=== PATIENT | female | born 1960 | race Caucasian/White ===

== ENCOUNTER → 2019-11-29 10:21 | Outpatient (CLI) | payer OTHER, SELFPAY ==
--- NOTE | ~2019-11-29 | MM_ITS ---
EXAMINATION: MM screening tonio BI w queta HISTORY: Screening mammogram TECHNIQUE: Craniocaudal and mediolateral oblique 3-D tomosynthesis images were obtained and synthetic 2-D images were generated. CAD analysis was submitted and interpreted. COMPARISON: 11/07/2018 bilateral diagnostic digital mammogram 04/12/2018 and 08/31/2017 diagnostic right digital mammogram 08/15/2017, 08/12/2016 bilateral digital screening mammogram BREAST PARENCHYMAL COMPOSITION: The breasts are almost entirely fatty. FINDINGS: There is no evidence of suspicious mass, calcification, or architectural distortion to sugg est malignancy in either breast. There has been no suspicious interval change. IMPRESSION: 1. No mammographic evidence of malignancy. 2. Recommend routine screening mammography in one year. BI-RADS Category 1: Negative Reviewed, dictated and finalized at location A. FILER
== END ==
PROVIDERS: Visit Provider Nurse Practitioner Obstetrics & Gynecology
DX: Z12.31 Encounter for screening mammogram for malignant neoplasm of breast (principal)
CPT/HCPCS: 77063; 77067

== ENCOUNTER 2020-10-05 08:04 | Outpatient (CLI) | payer OTHER, SELFPAY ==
[2020-10-06 12:24] LABS: SARS-CoV-2 RNA PCR Negative
== END 2020-10-05 08:05 | disposition home or self-care (01) ==
LOC: CHSLAB 08:07
PROVIDERS: PCP Internal Medicine; Visit Provider Internal Medicine
DX: Z20.828 Contact with and (suspected) exposure to other viral communicable diseases (principal)
CPT/HCPCS: 87635; C9803; U0003

== ENCOUNTER 2021-01-20 16:50 | Inpatient (IN) | payer OTHER, SELFPAY ==
[2021-01-20] VITALS (12 sets, daily range): BP systolic 119–142; BP diastolic 69–76; PULSE 85–228; RESP 17–27; TEMP 37.6–39.2; O2SAT 88–100; BMI 35.2
--- NOTE | ~2021-01-20 | CT_ITS ---
EXAMINATION: CTA chest PE protocol DATE: 01/20/2021 19:15 INDICATION: COVID-19 pneumonia. Fever. Supraventricular tachycardia. TECHNIQUE: Computed tomography angiography (CTA) of the chest was performed with 100 mL Omnipaque-350 intravenous contrast timed to evaluate the pulmonary arteries. Coronal maximum intensity projection 3D-reconstructions were created by the technologist. Automated exposure control and iterative reconst ruction technique were employed. The dose-length product was 825.00 mGy-cm. COMPARISON: Chest single view 01/20/2021 FINDINGS: There are patchy airspace and groundglass opacities in all lobes bilaterally. A calcified l eft lung nodule and calcified left hilar and mediastinal lymph nodes are consistent with old granulom atous disease. No pleural effusion. The heart size is normal. No pericardial effusion. There is no pu lmonary embolus. There is dextroscoliosis and severe spondylosis of thoracic spine. IMPRESSION: 1. No pulmonary embolus. 2. Diffuse lung disease, consistent with pneumonia. Reviewed, dictated and finalized at location A.
--- NOTE | ~2021-01-20 | XR_ITS ---
EXAMINATION: XR chest 2V DATE: 01/24/2021 11:23 INDICATION: Cough and shortness of breath. COVID-19 pneumonia. TECHNIQUE: Frontal and lateral views of the chest were obtained. COMPARISON: Chest single view 01/20/2021, chest CT 01/20/2021 FINDINGS: There are patchy airspace opacities in the mid and lower lung zones. No pleural effusion or pneumothorax. The heart size is normal. IMPRESSION: 1. Patchy airspace opacities in the mid and lower lung zones, worsened from 01/20/2021, consistent with COVID-19 pneumonia. Reviewed, dictated and finalized at location A. IMPRESSION: 1. Patchy airspace opacities in the mid and lower lung zones, worsened from 01/20, consistent with COVID-19 pneumonia.
--- NOTE | ~2021-01-20 | XR_ITS ---
EXAMINATION: XR chest 1V portable DATE: 01/20/2021 17:48 INDICATION: Supraventricular tachycardia. Shortness of breath. TECHNIQUE: A single frontal view of the chest was obtained on 2 radiographs. COMPARISON: Chest 2 views 08/30/2013 FINDINGS: There are mild airspace opacities in the mid and lower lung zones. No pleural effusion or p neumothorax. The heart size is normal. IMPRESSION: 1. Mild airspace opacities in the mid and lower lung zones, consistent with atelectasis versus pneumo ketan. Reviewed, dictated and finalized at location A. IMPRESSION: 1. Mild airspace opacities in the mid and lower lung zones, consistent with ate lectasis versus pneumonia.
--- NOTE | 2021-01-20 17:09 | ECG_ITS ---
Measurements Intervals [place] Rate: 221 P: NE: 0 QRS: -5 QRSD: 196 T: 0 QT: 193 QTc: 370 Interpretive Statements SUPRAVENTRICULAR TACHYCARDIA LEFT VENTRICULAR HYPERTROPHY WITH ST-T CHANGE ST-T WAVE ABNORMALITY IN DIFFUSE LEADS- CONSIDER ISCHEMIA OR RATE RELATED ABNORMAL ECG Electronically Signed On 01-20-2021 17:21:15 CDT by Paco Anderson D.O.
--- NOTE | 2021-01-20 17:18 | PC.NURSE ---
VAGAL MANEUVERS ATTEMPTED WITHOUT SUCCESS.
[2021-01-20] MEDS: SODIUM CHLORIDE 0.9% IV 1,000 ML 999 ML IV CONT (17:20)
[2021-01-20] MEDS: ADENOSINE IV SOLN 6 MG/2 ML VIAL (17:23)
--- NOTE | 2021-01-20 17:23 | PC.NURSE ---
6 MG ADENOSINE ADMINISTERED RAPIDLY FOLLOWED BY A 30ML NS RAPID BOLUS WITH EDP AT BEDSIDE. PT TOLERATED WELL. PT NOW IN SINUS TACH RATE 116. STATES SHE IS FEELING BETTER.
--- NOTE | 2021-01-20 17:25 | ECG_ITS ---
Measurements Intervals [place] Rate: 109 P: 26 CT: 149 QRS: -8 QRSD: 86 T: -9 QT: 304 QTc: 410 Interpretive Statements SINUS TACHYCARDIA LEFT VENTRICULAR HYPERTROPHY WITH ST-T CHANGE CONSIDER INFERIOR INFARCT, AGE INDETERMINATE ABNORMAL ECG Electronically Signed On 01-21-2021 7:14:26 CDT by Paco Anderson D.O.
[2021-01-20] MEDS: ACETAMINOPHEN 500 MG TABLET 1000 MG PO (17:36)
[2021-01-20 18:07] LABS: Basophils Absolute Auto 0.01 K/mm3 (0.00-0.10); Basophils Percent Auto 0.1 % (0.0-1.0); Eosinophils Absolute Auto 0.01 K/mm3 (0.02-0.50); Eosinophils Percent Auto 0.1 % (1.0-6.0); Hematocrit 39.8 % (35.0-49.0); Immature Granulocyte Absolute 0.03 K/mm3 (0.00-0.00); Immature Granulocyte Percent A 0.4 % (0.0-0.0); Lymphocytes Absolute Auto 0.92 K/mm3 (1.10-4.50); Lymphocytes Percent Auto 13.6 % (18.0-42.0); Mean Corpuscular HGB Conc 32.7 g/dL (32.0-36.0); Mean Corpuscular Hemoglobin 30.2 pg (27.0-31.0); Mean Corpuscular Volume 92.6 fL (78.0-102.0); Mean Platelet Volume 9.3 fl (9.2-11.8); Neutrophils Absolute Auto 5.6 K/mm3 (1.7-7.2); Neutrophils Percent Auto 82.8 % (50.0-70.0); Platelet Count Result 197 K/mm3 (150-420); Red Cell Distribution Width 12.2 % (11.6-14.4); White Blood Count 6.8 K/mm3 (4.8-10.8)
[2021-01-20 18:07] LABS: Base Excess ABG -0.7 mmol/L (0-2); Fractional Inspired Oxygen 24 %; HCO3 ABG 22.4 mmol/L (23-29); Oxygen Content ABG 16.8 %vol (16.0-22.0); Oxygen Saturation ABG 96.1 % (95-97); PCO2 ABG 31.9 mmHg (35-45); PO2 ABG 78.1 mmHg (80-90); PO2 FiO2 Ratio Arterial Blood 3.25 %; Total Hemoglobin 12.4 g/dL; pH ABG 7.46 (7.35-7.45)
[2021-01-20 18:11] LABS: Site Drawn LEFT BRACHIAL
[2021-01-20 18:20] LABS: Add Urine Microscopic? YES; Appearance Urine Clear (Clear); Bilirubin Urine Negative (Negative); Blood Urine Negative (Negative); Color Urine Yellow (Yellow); Glucose Urine UA Negative (Negative); Ketones Urine Negative (Negative); Leukocyte Esterase Ur Negative LEU/UL (Negative); Nitrate Urine Negative (Negative); Protein Urine Trace (Negative); Urobilinogen Urine 0.2 mg/dL (0.2-1.0); pH Urine 6.5 (5.0-8.0)
[2021-01-20 18:23] LABS: Troponin I 17.1 ng/L (0.00-60.4)
[2021-01-20 18:26] LABS: Lactic Acid Reflex 1.2 mmol/L (0.4-2.0)
[2021-01-20 18:29] LABS: Alanine Aminotransferase 25 U/L (14-59); Alkaline Phosphatase 72 U/L (46-116); Anion Gap 9 mmol/L (8-16); Aspartate Amino Transferase 24 U/L (15-37); Bilirubin,Total 0.5 mg/dL (0.00-1.00); Blood Urea Nitrogen 10 mg/dL (7-18); CRP 10.1 mg/dL (0.0-0.9); Calcium 7.6 mg/dL (8.5-10.1); Carbon Dioxide 26 mmol/L (21-32); Chloride 101 mmol/L (98-108); Estimated CRCL calculation 51 ml/min; Estimated Glomerular Filt Rate 58; Glucose 138 mg/dL (70-99); Osmolality Calculated 283 mOsm/kg (285-295); Potassium 3.6 mmol/L (3.5-5.1); Sodium 136 mmol/L (136-145); Thyroid Stimulating Hormone 1.29 uIU/mL (0.36-3.74)
[2021-01-20 18:31] LABS: D Dimer 1.09 mg/L (0.19-0.50)
[2021-01-20 18:41] LABS: Partial Thromboplastin Time 31.7 SEC (23.90-30.70); Prothrombin Time 10.7 Seconds (9.50-12.10)
[2021-01-20 18:47] LABS: RBC Urine 0-2 /hpf (0-2); WBC Urine 0-3 /hpf (0-3)
[2021-01-20 18:48] LABS: Squamous Epithelial Cell Urine Rare /hpf (Few)
--- NOTE | 2021-01-20 19:17 | PC.NURSE ---
REPORT TO PAULETTE BARRETT
--- NOTE | 2021-01-20 19:28 | ED.FEVER ---
HPI - Fever General Chief Complaint: Chest Pain Stated Complaint: spiking heart rate,covid + Source: patient Mode of arrival: ambulatory History of Present Illness HPI Narrative: patient presents with some fever of 102 and is having tachycardia with a rate of 238 patient has O2 saturation at home of 88% on room air was diagnosed with COVID on 01/09/2021, with no shortness of breath no diaphoresis no chest pain no nausea vomiting all patient has a history abnormal heart rhythm with no a hyperlipidemia. MD elicited complaint: fever Onset (ago): day(s) Exacerbating factors: nothing Relieving factors: nothing Related Data Home Medications Medication Instructions Recorded Confirmed omega-3 fatty acids-fish oil 360 1 cap PO DAILY 12/29/19 01/20/21 mg-1,200 mg capsule vitamin D3 2,500 unit-folic acid 1 1 tablet PO DAILY 12/29/19 01/20/21 mg tablet atorvastatin 20 mg PO DAILY 01/20/21 01/20/21 diltiazem HCl 240 mg PO DAILY 01/20/21 01/20/21 Allergies Allergy/AdvReac Type Severity Reaction Status Date / Time No Known Drug Allergies Allergy Unknown none Verified 12/31/19 08:52 Review of Systems Review of Systems: All systems reviewed & are unremarkable except as noted in HPI and below PMFSH Past Medical History Medical History Hypertension Surgical History Surgical History History of appendectomy Family History Family History Mother Hypertension Family history of elevated blood lipids Family history of chronic obstructive pulmonary disease Father Family history of cardiovascular disease Social History Social History Smoking status: Never smoker Exam Const: General: no acute distress Orientation/consciousness: patient oriented x3 HENMT: Head: normal to inspection and contusion Eyes: Conjunctivae: conjunctivae normal Pupils: Equal, round and reactive pupils present Neck: Neck: normal visual inspection Chest: Chest palpation & inspection: normal inspection of the chest Resp: Effort & Inspection: normal respiratory effort Cardio: Rate: regular rate and tachycardic Peripheral pulses: Peripheral pulses 2+ throughout GI: GI Palp: Yes Soft to palpation Percussion: Yes normal to percussion : General: Yes no CVA tenderness Back/Spine/Pelvis: Back: no CVA tenderness Skin: General skin exam: normal color Rashes: no rashes Extrem: General: normal to inspection and no pedal edema Psych: Mental Status: mental status grossly normal Course 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 Supervision Patient initially with heart rate of 238 on the monitor, tried cold ice pack to the face along with a carotid massage after auscultating the carotid arteries in no bruits auscultated, the patient was given 6 of adenosine and which a sharebroker tachycardia and current heart rate was 104, repeat EKG shows a normal sinus rhythm with some heart rate of 104, the patient had no unstable vital signs the patient had a fever and was started on IV fluids, patient had an elevated D-dimer and CTA was performed which is negative for pulmonary embolism, x-ray did show that she has a mid lung opacities consistent with pneumonia and was given ceftriaxone azithromycin. Vital Signs Vital signs: Vital Signs Temperature 39.2 C H 01/20/21 17:00 Pulse Rate 228 H 01/20/21 17:00 Respiratory Rate 22 H 01/20/21 17:00 Blood Pressure 140/70 01/20/21 17:00 Pulse Oximetry 88 L 01/20/21 17:00 Temperature 39.1 C H 01/20/21 18:21 Pulse Rate 104 H 01/20/21 18:46 Respiratory Rate 25 H 01/20/21 18:46 Blood Pressure 125/72 01/20/21 18:45 Pulse Oximetry 99 01/20/21 18:46 MDM - Fever Lab Data Result diagrams: 01/20/21 17:53 01/20/21 17:53 Labs: Lab Results 01/20/21 01/20/21
[2021-01-20 20:25] LABS: SARS-CoV-2 Ag Positive (Negative)
[2021-01-20 22:24] LABS: Device NASAL CANNULA
--- NOTE | 2021-01-20 22:35 | ADMGEN ---
This patient, Christina Damon, was admitted to 2nd Floor Room 211-1. Patient/family oriented to hospital policies and general routines including ID bracelet, bed and alarms, visiting hours, pain management, procedures, bathroom and other care routines, personal items, smoking policy, room service/diet, and visiting hours. Discussed Telemetry and discussed isolation and need to stay in room. Informed called. Information on how to activate the Rapid Response Team has been discussed. Patient/Family are encouraged to report perceived risks to care and to ask questions if they do not understand what they are told or what they should do.
[2021-01-20] MEDS: SODIUM CHLORIDE 0.9% IV 1,000 ML 100 ML IV CONT (23:13)
[2021-01-20] MEDS: REMDESIVIR 200 MG/NS 250 ML 200 MG/250 ML BAG 250 MG IVPB (23:23)
[2021-01-21] VITALS (10 sets, daily range): BP systolic 126–142; BP diastolic 60–75; PULSE 54–121; RESP 18–20; TEMP 37–38; O2SAT 91–96
--- NOTE | 2021-01-21 01:26 | PC.NURSE ---
pt sleeping, respirations even and regular, no evidence of distress noted at this time, belongings and call light within reach, tele monitor with alarms on, iv fluids infusing per order and alarms on
[2021-01-21] MEDS: ACETAMINOPHEN 325 MG TABLET 650 MG PO (04:15)
[2021-01-21 05:32] LABS: Basophils Absolute Auto 0.01 K/mm3 (0.00-0.10); Basophils Percent Auto 0.2 % (0.0-1.0); Eosinophils Absolute Auto 0.04 K/mm3 (0.02-0.50); Eosinophils Percent Auto 0.6 % (1.0-6.0); Hematocrit 36.6 % (35.0-49.0); Hemoglobin 11.8 g/dL (12.0-15.0); Immature Granulocyte Absolute 0.03 K/mm3 (0.00-0.00); Immature Granulocyte Percent A 0.5 % (0.0-0.0); Lymphocytes Absolute Auto 1.25 K/mm3 (1.10-4.50); Lymphocytes Percent Auto 18.9 % (18.0-42.0); Mean Corpuscular HGB Conc 32.2 g/dL (32.0-36.0); Mean Corpuscular Hemoglobin 29.5 pg (27.0-31.0); Mean Corpuscular Volume 91.5 fL (78.0-102.0); Mean Platelet Volume 9.5 fl (9.2-11.8); Monocytes Absolute Auto 0.16 K/mm3 (0.10-0.90); Monocytes Percent Auto 2.4 % (2.0-11.0); Neutrophils Absolute Auto 5.1 K/mm3 (1.7-7.2); Neutrophils Percent Auto 77.4 % (50.0-70.0); Platelet Count Result 197 K/mm3 (150-420); Red Cell Distribution Width 12.2 % (11.6-14.4); White Blood Count 6.6 K/mm3 (4.8-10.8)
[2021-01-21 06:08] LABS: Alanine Aminotransferase 24 U/L (14-59); Anion Gap 8 mmol/L (8-16); Calcium 7.7 mg/dL (8.5-10.1); Carbon Dioxide 26 mmol/L (21-32); Chloride 104 mmol/L (98-108); Estimated CRCL calculation 58 ml/min; Estimated Glomerular Filt Rate > 60; Potassium 3.3 mmol/L (3.5-5.1); Sodium 138 mmol/L (136-145)
[2021-01-21 06:13] LABS: Lactic Acid Reflex 0.9 mmol/L (0.4-2.0)
[2021-01-21 06:22] LABS: Albumin Level 2.4 g/dL (3.4-5.0); Alkaline Phosphatase 59 U/L (46-116); Aspartate Amino Transferase 23 U/L (15-37); Bilirubin,Total 0.3 mg/dL (0.00-1.00); Blood Urea Nitrogen 7 mg/dL (7-18); Glucose 113 mg/dL (70-99); Magnesium 1.7 mg/dL (1.8-2.4); Osmolality Calculated 285 mOsm/kg (285-295); Total Protein 6.5 g/dL (6.4-8.2)
[2021-01-21 06:36] LABS: Creatine Kinase 106 U/L (26-192)
[2021-01-21] MEDS: ATORVASTATIN 10 MG TABLET 20 MG PO (10:02)
[2021-01-21] MEDS: DEXAMETHASONE SOD PHOS INJ 4 MG/ML VIAL 6 MG IV PUSH (10:06)
[2021-01-21] MEDS: SODIUM CHLORIDE 0.9% IV 1,000 ML 100 ML IV CONT (12:10)
--- NOTE | 2021-01-21 16:55 | PM.IMHP ---
H&P: HPI History of Present Illness Date/Time: 01/21/21 16:55 Christina Damon, a 60 year old female, presents to the hospital staff with HR in the 230s along with a fever. Per ER note Pt tested positive for COVID on 01/09/2021. Upon seeing the Pt in her room she did not complain of SOB but did states she feels a little tightness in her chest that feels the same as when she has anxiety. Pt states that she and her PCP discussed her anxiety but the Pt did not want to take any medication for this however she did agree to take some while hospitalized. Pts SVT was resolved in the ER with Adenosine. Pt had holter monitor in the past without SVT episodes. When EMS arived on the scene Pt had an SpO2 of 88%. Pt denies any SOB at this time, no abdominal issues, no bowel or bladder issues, no musculoskeletal issues at this time. Chief Complaint: Fever and Palpitations Review of Systems Constitutional: Constitutional: Reports no additional constitutional complaints, Denies chills, Denies fever(s) and Denies poor appetite Eyes: Eyes: Reports itchy eyes (and dry) ENT: Reports system reviewed and no additional complaints, except as documented, Denies vertigo, Denies dizziness, Denies dry mouth and Denies headache(s) Cardiovascular: Cardiovascular: Reports no additional cardiovascular complaints Comments: pressure in chest which Pt states happens when she has anxiety Respiratory: Respiratory: Reports no additional respiratory complaints, Reports cough (occasional) and Denies dyspnea Gastrointestinal: Gastrointestinal: Reports no additional gastrointestinal complaints Genitourinary: Genitourinary: Reports no additional female genitourinary complaints Musculoskeletal: Musculoskeletal: Reports no additional musculoskeletal complaints Neurologic: Reports system reviewed and no additional complaints, except as documented, Reports Normal hearing present, Denies vertigo, Denies dizziness and Denies syncope Psychiatric: Psychiatric: Reports anxiety (has had this in past but denied medication for this) [facility] Past Medical History Medical History (Updated 01/21/21 @ 17:18 by José Antonio Burden APN-Yenni) Body mass index [BMI] 36.0-36.9, adult (01/21/18) Dyslipidemia Hypertension Obesity (BMI 35.0-39.9 without comorbidity) Surgical History Surgical History History of appendectomy Family History Family History Mother Hypertension Family history of elevated blood lipids Family history of chronic obstructive pulmonary disease Father Family history of cardiovascular disease Social History Social History Smoking status: Never smoker Alcohol intake: never Substance use: never Substance use type: does not use Gender identity (if verbalized by the patient): Female Spiritual care concerns: No Meds Home Medications and Allergies Home Medications Medication Instructions Recorded Confirmed Type omega-3 fatty acids-fish oil 360 1 cap PO DAILY 12/29/19 01/20/21 History mg-1,200 mg capsule vitamin D3 2,500 unit-folic acid 1 1 tablet PO DAILY 12/29/19 01/20/21 History mg tablet atorvastatin 20 mg PO DAILY 01/20/21 01/20/21 History diltiazem HCl 240 mg PO DAILY 01/20/21 01/20/21 History Allergies Allergy/AdvReac Type Severity Reaction Status Date / Time No Known Drug Allergies Allergy Unknown none Verified 12/31/19 08:52 Vital Signs Vital Signs - 24 hr 01/20/21 17:00 01/20/21 17:35 01/20/21 18:00 Temperature 102.5 F H Pulse Rate 228 H 112 H Respiratory Rate 22 H 20 Blood Pressure 140/70 142/75 H 133/76 Pulse Oximetry 88 L 94 94 01/20/21 18:21 01/20/21 18:31 01/20/21 18:32 Temperature 102.3 F H Pulse Rate 106 H 108 H Respiratory Rate 22 H 27 H Blood Pressure 125/69 Pulse Oximetry 99 100 01/20/21 18:45 01/20/21 18:46 01/20/21 19:34
[2021-01-21] MEDS: LORazepam INJ (*CRX) 2 MG/ML VIAL 0.5 MG IV PUSH (17:03)
[2021-01-21] MEDS: POTASSIUM CHLORIDE 20 MEQ TABLET 40 MEQ PO (17:56)
[2021-01-21] MEDS: MAGNESIUM SULF 4 GM/WATER100ML 4 GM/100 ML BAG IVPB (17:56)
[2021-01-21] MEDS: REMDESIVIR 100 MG/NS 250 ML 100 MG/250 ML BAG 250 MG IVPB (22:38)
[2021-01-21] MEDS: ENOXAPARIN 40 MG/0.4 ML SYRINGE SUB-Q (22:39)
[2021-01-22] VITALS (8 sets, daily range): BP systolic 115–176; BP diastolic 62–85; PULSE 71–97; RESP 18–20; TEMP 35.7–36.9; O2SAT 90–95
[2021-01-22 05:54] LABS: Alanine Aminotransferase 31 U/L (14-59); Estimated CRCL calculation 62 ml/min; Estimated Glomerular Filt Rate > 60
[2021-01-22] MEDS: ATORVASTATIN 10 MG TABLET 20 MG PO (09:19)
[2021-01-22] MEDS: ENOXAPARIN 40 MG/0.4 ML SYRINGE SUB-Q ×2 (09:19→21:28)
[2021-01-22] MEDS: DEXAMETHASONE SOD PHOS INJ 4 MG/ML VIAL 6 MG IV PUSH (09:24)
--- NOTE | 2021-01-22 10:43 | PM.IMPN ---
Progress Note: A&P Assessment and Plan (1) COVID-19: Code(s): U07.1 - COVID-19 Status: Acute Assessment and Plan: 01/21/2021 Pt is receiving Decadron, Remdesivir, Azithromycin, Rocephin, and Lovenox for elevated D-Dimer with negative PE results. 01/22/2021 Continue with above, Pt states breathing about the same as yesterday, RA with SpO2 > 90 % (2) Paroxysmal supraventricular tachycardia: Code(s): I47.1 - Supraventricular tachycardia Status: Acute Assessment and Plan: 01/21/2021 Rate at this time is in the 80s and regular, cardiac monitoring, monitoring VS, taking her Diltiazem 01/22/2021 Cardiac Monitoring showing SR in the 80s, VSS stable (3) Pneumonia: Qualifiers: Laterality: unspecified laterality Lung location: unspecified part of lung Pneumonia type: due to unspecified organism Qualified Code(s): J18.9 - Pneumonia, unspecified organism Code(s): J18.9 - Pneumonia, unspecified organism Status: Acute Assessment and Plan: 01/21/2021 Pt has Rocephin and Azithromycin 01/22/2021 No changes at this time, slight posterior crackles (4) Hypertension: Code(s): I10 - Essential (primary) hypertension Status: Acute Assessment and Plan: 01/21/2021 monitoring VS, continue Diltiazem 01/22/2021 VSS continue with above (5) Dyslipidemia: Code(s): E78.5 - Hyperlipidemia, unspecified Status: Acute Assessment and Plan: 01/21/2021 continue Atorvastatin 01/22/2021 ... Subjective Date/time seen: 01/22/21 10:43 Pt laying in bed on the phone with her sister. Pt states her breathing is about the same as yesterday. She admits to having an occasional cough that is non-productive. She denies CP, Abdominal pains or changes in bowel habits, no musculoskeletal issues, no numbness or tingling, no LEÓN, changes in vision, or balance. Pt did say that the Ativan yesterday did help with her anxiety. Review of Systems Review of Systems: All systems reviewed & are unremarkable except as noted in HPI and below Exam Const: General: cooperative, comfortable and no acute distress Nutritional Appearance: overweight HENMT: Head: normal to inspection, normocephalic and atraumatic Ears: hearing grossly normal bilaterally Neck: Neck: normal visual inspection, no lymphadenopathy and no JVD Resp: Effort & Inspection: normal respiratory effort and Actively coughing (with deep breathing) Auscultation: clear to auscultation bilaterally and crackles (slight posterior bases) Cardio: Palpation: normal PMI Rhythm: regular rhythm Heart sounds: S1 normal heart sound present, S2 normal heart sound present, no click, no gallops, no murmurs and no rubs GI: GI Palp: Yes Soft to palpation and No Tenderness to palpation present (GI) Auscultation: normal bowel sounds Skin: General skin exam: normal color and turgor normal Lesions: no lesions Rashes: no rashes Trauma: no lacerations or abrasions Neuro: General: oriented to person, oriented to place, oriented to time, moves all extremities and no focal motor deficits Cranial nerves: Yes CN's II-XII intact bilaterally (grossly intact) Cognition (Neuro): normal cognition Speech: normal speech Extrem: General: normal to inspection, full ROM and edema (trace edema) bilateral Psych: Appearance: grossly normal Mental Status: mental status grossly normal Speech and movement: Normal speech and movement present Affect: normal affect Attitude: cooperative Thought process: Normal thought process present Thought content: Yes Normal thought content present Objective Data Vital Signs Vital Signs: Vital Signs - 24 hr 01/21/21 12:00 01/21/21 16:51 01/21/21 16:53 Temperature 99.8 F H 99.4 F Pulse Rate 54 L 92 121 H Respiratory Rate 18 18 Blood Pressure 137/71 142/69 H Pulse Oximetry 92 96 01/21/21 20:00 01/22/21 00:00 01/22/21 04:00 Temperature 98.6 F 97.2 F L 97.6 F Pulse Rate 80 86 76 Respiratory Rate 20 20 18 Blood Pressur
[2021-01-22] MEDS: REMDESIVIR 100 MG/NS 250 ML 100 MG/250 ML BAG 250 MG IVPB (21:40)
--- NOTE | 2021-01-23 01:45 | PC.NURSE ---
Telemetry SR, no needs voiced, resting quietly, oxygen on at 2 L NC
--- NOTE | 2021-01-23 03:30 | PC.NURSE ---
Resting quietly, oxygen on at 2 L NC, no distress noted, telemetry SR, remains on isolation at this time
[2021-01-23 04:00] VITALS: PULSE 70; RESP 18; TEMP 37.1; O2SAT 95
--- NOTE | 2021-01-23 05:46 | PC.NURSE ---
Fresh water to bedside, has been resting well, oxygen remains at 2 L NC at this time, no distress noted
--- NOTE | 2021-01-23 06:05 | PC.NURSE ---
Resting quietly, call light in reach, personal items in reach of patient denies needs,
[2021-01-23 06:22] LABS: Hemoglobin 12.3 g/dL (12.0-15.0); Mean Corpuscular HGB Conc 32.4 g/dL (32.0-36.0); Mean Corpuscular Hemoglobin 29.6 pg (27.0-31.0); Mean Corpuscular Volume 91.6 fL (78.0-102.0); Mean Platelet Volume 9.3 fl (9.2-11.8); Platelet Count Result 339 K/mm3 (150-420); Red Blood Count 4.15 M/mm3 (4.20-5.40); Red Cell Distribution Width 12.2 % (11.6-14.4); White Blood Count 11.4 K/mm3 (4.8-10.8)
[2021-01-23 06:37] LABS: Anion Gap 7 mmol/L (8-16); Blood Urea Nitrogen 15 mg/dL (7-18); Calcium 8.2 mg/dL (8.5-10.1); Carbon Dioxide 26 mmol/L (21-32); Chloride 108 mmol/L (98-108); Estimated CRCL calculation 66 ml/min; Estimated Glomerular Filt Rate > 60; Glucose 141 mg/dL (70-99); Osmolality Calculated 294 mOsm/kg (285-295); Potassium 3.8 mmol/L (3.5-5.1); Sodium 141 mmol/L (136-145)
[2021-01-23 06:42] LABS: Alanine Aminotransferase 27 U/L (14-59)
[2021-01-23 08:00] VITALS: BP 154/88; PULSE 73; PULSE 93; RESP 18; TEMP 36.3; O2SAT 2
[2021-01-23 09:00] VITALS: O2SAT 88
[2021-01-23] MEDS: ENOXAPARIN 40 MG/0.4 ML SYRINGE SUB-Q ×2 (10:06→21:01)
[2021-01-23] MEDS: ATORVASTATIN 10 MG TABLET 20 MG PO (10:06)
[2021-01-23] MEDS: DEXAMETHASONE SOD PHOS INJ 4 MG/ML VIAL 6 MG IV PUSH (10:06)
[2021-01-23 12:00] VITALS: BP 176/85; PULSE 70; PULSE 95; RESP 18; TEMP 36.1; O2SAT 92
--- NOTE | 2021-01-23 15:39 | PM.IMPN ---
Progress Note: A&P Assessment and Plan (1) COVID-19: Code(s): U07.1 - COVID-19 <José Antonio BurdenKAYLYN-C - Last Filed: 01/23/21 15:56> Status: Acute <José Antonio BurdenKAYLYN-C - Last Filed: 01/23/21 15:56> Assessment and Plan: 01/21/2021 Pt is receiving Decadron, Remdesivir, Azithromycin, Rocephin, and Lovenox for elevated D-Dimer with negative PE results. 01/22/2021 Continue with above, Pt states breathing about the same as yesterday, RA with SpO2 > 90 % 01/23/2021 Currently 1L NC with SpO2 93% or better at rest, continue to attempt to wean O2, will consider 6 minute walk test <José Antonio HessKAYLYN asencio-C - Last Filed: 01/23/21 15:56> (2) Paroxysmal supraventricular tachycardia: Code(s): I47.1 - Supraventricular tachycardia <José Antonio HessKAYLYN asencio-C - Last Filed: 01/23/21 15:56> Status: Acute <José Antonio BurdenKAYLYN-C - Last Filed: 01/23/21 15:56> Assessment and Plan: 01/21/2021 Rate at this time is in the 80s and regular, cardiac monitoring, monitoring VS, taking her Diltiazem 01/22/2021 Cardiac Monitoring showing SR in the 80s, VSS stable 01/23/2021 Have not had episodes since resolution in the ER with Adenosine, continue to monitor <José Antonio HessKAYLYN asencio-C - Last Filed: 01/23/21 15:56> (3) Pneumonia: Qualifiers: Laterality: unspecified laterality Lung location: unspecified part of lung Pneumonia type: due to unspecified organism Qualified Code(s): J18.9 - Pneumonia, unspecified organism <José Antonio HessKAYLYN asencio-C - Last Filed: 01/23/21 15:56> Code(s): J18.9 - Pneumonia, unspecified organism <José Antonio Calles KAYLYN Burden-C - Last Filed: 01/23/21 15:56> Status: Acute <José Antonio HessKAYLYN asencio-C - Last Filed: 01/23/21 15:56> Assessment and Plan: 01/21/2021 Pt has Rocephin and Azithromycin 01/22/2021 No changes at this time, slight posterior crackles 01/23/2021 Continue as above <José Antonio NguyenKENNETH MoralesC - Last Filed: 01/23/21 15:56> (4) Hypertension: Code(s): I10 - Essential (primary) hypertension <José Antonio KENNETH ReyesC - Last Filed: 01/23/21 15:56> Status: Acute <José Antonio NguyenKENNETH MoralesC - Last Filed: 01/23/21 15:56> Assessment and Plan: 01/21/2021 monitoring VS, continue Diltiazem 01/22/2021 VSS continue with above 01/23/2021 BP elevated over last 24 hours, will monitor tomorrow and make adjustments as needed. <YUDELKA Andrew - Last Filed: 01/23/21 15:56> (5) Dyslipidemia: Code(s): E78.5 - Hyperlipidemia, unspecified <KENNETH AndrewC - Last Filed: 01/23/21 15:56> Status: Acute <José Antonio WendyYUDELKA Morales - Last Filed: 01/23/21 15:56> Assessment and Plan: 01/21/2021 continue Atorvastatin 01/22/2021 ... <José Antonio NguyenYUDELKA Morales - Last Filed: 01/23/21 15:56> Subjective Date/time seen: 01/23/21 15:39 Pt states her breathing is a little better today. She states she still has a cough with deep breathing. Pt understands that her O2 has been decreased as her Oxygen demand has improved. Discussed with Pt adding Albuterol and she would like to try this for her bronchospasms. Pt says that when her Oxygen is off she does feel a little SOB but this is better then when she first arrived at the hospital. <YUDELKA Andrew - Last Filed: 01/23/21 15:56> Review of Systems Review of Systems: All systems reviewed & are unremarkable except as noted in HPI and below <YUDELKA Andrew - Last Filed: 01/23/21 15:56> Exam Const: General: cooperative, comfortable, no acute distress and anxious (Improved) <YUDELKA Andrew - Last Filed: 01/23/21 15:56> Nutritional Appearance: overweight <YUDELKA Andrew - Last Filed: 01/23/21 15:56> Orientation/consciousness: oriented to person, oriented to place and oriented to time <YUDELKA Andrew - Last Filed: 01/23/21 15:56> HENMT: Head: normal to inspection, normocephalic and atraumatic <YUDELKA Andrew Last
[2021-01-23 16:00] VITALS: BP 156/80; PULSE 78; PULSE 84; RESP 18; TEMP 36.7; O2SAT 94
[2021-01-23 20:00] VITALS: BP 151/81; PULSE 86; RESP 20; TEMP 36.4; O2SAT 95
[2021-01-23] MEDS: REMDESIVIR 100 MG/NS 250 ML 100 MG/250 ML BAG 250 MG IVPB (21:12)
[2021-01-24] VITALS (11 sets, daily range): BP systolic 156; BP diastolic 89–102; PULSE 58–92; RESP 18–20; TEMP 35.9–37.7; O2SAT 87–96
[2021-01-24 05:38] LABS: Alanine Aminotransferase 30 U/L (14-59); Estimated CRCL calculation 60 ml/min; Estimated Glomerular Filt Rate > 60
[2021-01-24] MEDS: DEXAMETHASONE SOD PHOS INJ 4 MG/ML VIAL 6 MG IV PUSH (09:04)
[2021-01-24] MEDS: ATORVASTATIN 10 MG TABLET 20 MG PO (09:05)
[2021-01-24] MEDS: ENOXAPARIN 40 MG/0.4 ML SYRINGE SUB-Q (09:05)
[2021-01-24] MEDS: lisinopriL 5 MG TABLET PO (09:59)
--- NOTE | 2021-01-24 10:21 | HOMEO2EVAL ---
Home Oxygen Evaluation RC: Home Oxygen (O2) Evaluation Start: 01/24/21 08:45 Freq: ONCE Status: Active Protocol: RPE Activity Type Activity Date Activity User E-Sign Co-Sign Detail Recorded Client Recorded Date Recorded By Document 01/24/21 10:00 DAYANNA [id number] 01/24/21 10:20 SJB Document 01/24/21 10:01 SJB [id number] 01/24/21 10:20 SJB Document 01/24/21 10:04 Rogelio [id number] 01/24/21 10:20 SJB 01/24/21 01/24/21 01/24/21 10:00 10:01 10:04 Home O2 Evaluation Test Phase Resting Exercise Exercise Oxygen Delivery Room Air Room Air Nasal Cannula Oxygen Flow Rate (L/min) 1 Pulse Oximetry (90-100 %) 93 87 L 91 Pulse Rate (60-100 beats/min) 84 92 89 Activity Tolerance Good Good Rating of Perceived Dyspnea (PD) +1 Mild, +1 Mild, Noticeable to Noticeable to the Participant the Participant but Not to an but Not to an Observer Observer Rate of Perceived Exertion (PE) 12 12 Ambulation Distance (feet) 100 100 Home Oxygen Evaluation Comments Patients sp02 Pt finished the dropped to 87% rest of the on R/A after walk on 1 lpm 100 ft. Pt with her Sp02 will be started staying between on 1 lpm. 90-92%. Treatment Charges O2 Evaluation - Inpatient
--- NOTE | 2021-01-24 13:43 | PM.DS ---
DS: Admitting Diagnosis Admitting Diagnosis Admitting Diagnosis: COVID, SVT DS: Discharge Diagnosis Discharge Diagnosis (1) COVID-19: Code(s): U07.1 - COVID-19 Status: Acute Assessment and Plan: 01/21/2021 Pt is receiving Decadron, Remdesivir, Azithromycin, Rocephin, and Lovenox for elevated D-Dimer with negative PE results. 01/22/2021 Continue with above, Pt states breathing about the same as yesterday, RA with SpO2 > 90 % 01/23/2021 Currently 1L NC with SpO2 93% or better at rest, continue to attempt to wean O2, will consider 6 minute walk test 01/24/2021 Pt is doing well, her lungs are clear, she does not complain of cough at this time, she was given a 6 minute walk test and will require short term use of home oxygen, will send script for Decadron to finish the course, I have been informed that oxygen will be available for the Pt today by DC home. 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 (3) Pneumonia: Qualifiers: Laterality: unspecified laterality Lung location: unspecified part of lung Pneumonia type: due to unspecified organism Qualified Code(s): J18.9 - Pneumonia, unspecified organism Code(s): J18.9 - Pneumonia, unspecified organism Status: Acute Assessment and Plan: 01/21/2021 Pt has Rocephin and Azithromycin 01/22/2021 No changes at this time, slight posterior crackles 01/23/2021 Continue as above 01/24/2021 Pt has been in the hospital to finish her course of Azithromycin and Rocephin, Lungs clear without productive cough (4) Hypertension: Code(s): I10 - Essential (primary) hypertension Status: Acute Assessment and Plan: 01/21/2021 monitoring VS, continue Diltiazem 01/22/2021 VSS continue with above 01/23/2021 BP elevated over last 24 hours, will monitor tomorrow and make adjustments as needed. 01/24/2021 Added Lisinopril to the Pts regimen for elevated BP, Pt will need to f/u with PCP/Associate Spa Director (5) Dyslipidemia: Code(s): E78.5 - Hyperlipidemia, unspecified Status: Acute Assessment and Plan: 01/21/2021 continue Atorvastatin 01/22/2021 ... DS: Summary Hospital Course Hospital Course: Pt's breathing improving, no SVT on the sports photographer, minimal O2 requirement short term at home O2 use. Time Spent with Patient Time attestation: Total time spent providing and/or coordinating discharge services: < 30 minutes Exam Const: General: cooperative, comfortable, no acute distress and anxious (Pt admits to being anxious at times. ) Nutritional Appearance: overweight HENMT: Head: normal to inspection, normocephalic and atraumatic Ears: hearing grossly normal bilaterally Neck: Neck: normal visual inspection, no lymphadenopathy and no JVD Resp: Effort & Inspection: normal respiratory effort and no cough Auscultation: clear to auscultation bilaterally Cardio: Jugular venous distension: no JVD Rate: regular rate Heart sounds: S1 normal heart sound present and S2 normal heart sound present GI: GI Palp: Yes Soft to palpation and No Tenderness to palpation present (GI) Auscultation: normal bowel sounds Skin: General skin exam: normal color Lesions: no lesions Rashes: no rashes Trauma: no lacerations or abrasions Neuro: General: oriented to person, oriented to place and oriented to time Cranial nerves: Yes CN's II-XII intact bilaterally (grossly intact) Cognition (Neuro): normal cognition Speech: normal speech Gait exam (Neuro): Normal gait present Extrem: General: normal to inspection, ful
--- NOTE | 2021-01-24 15:45 | PC.NURSE ---
Patient being discharged home. IV site removed, tip intact. Dressing applied to site. Patient dressed in clothing from home with no assist. All discharge instructions and education reviewed with patient. All belongings gathered together and sent home with patient. Patient accompanied to front door via wheel chair. Left via private vehicle with . denies any questions at discharge.
--- NOTE | 2021-01-26 13:33 | PCDIET ---
Pt states she received and understood her discharge instructions. Pt also states I thought I got excellent care there, everyone was very good to me .
== END 2021-01-24 15:45 | disposition home or self-care (01) | DRG 177 ==
LOC: CHSED 19:57 → CHS2ND 20:03
PROVIDERS: Nurse Practitioner Family; Admitting Provider Emergency Medicine; Emergency Provider Emergency Medicine; PCP Internal Medicine; Visit Provider Emergency Medicine
DX: U07.1 COVID-19 (principal); J12.82 Pneumonia due to coronavirus disease 2019; I47.1 Supraventricular tachycardia; I10 Essential (primary) hypertension; E78.5 Hyperlipidemia, unspecified; E66.9 Obesity, unspecified; Z90.49 Acquired absence of other specified parts of digestive tract; Z68.35 Body mass index [BMI] 35.0-35.9, adult
CPT/HCPCS: 36415; 36600; 71045; 71046; 71275; 80048; 80053; 81001; 82550; 82565; 82805; 83605; 83735; 84443; 84460; 84484; 85025; 85027; 85380; 85610; 85730; 86140; 87040; 87426; 93005; 94618; 96361; 96365; 96367; 96375; 99285; A9270; C9803; J0153; J0456; J0696; J1100; J1650; J2060; J3475; J7030; Q9967

== ENCOUNTER 2021-02-21 14:54 | Outpatient (CLI) | payer OTHER, SELFPAY ==
--- NOTE | ~2021-02-21 | US_ITS ---
EXAMINATION: US venous doppler [facility] DATE: 02/21/2021 15:52 INDICATION: Left lower limb swelling TECHNIQUE: Grayscale ultrasound images without and with compression and Doppler ultrasound images of the left lower extremity veins were obtained. COMPARISON: None. FINDINGS: The visualized portions of left common femoral vein, profunda (deep) femoral vein, femoral vein, popl iteal vein, peroneal veins, posterior tibial veins, gastrocnemius vein and greater saphenous vein out flow are patent. IMPRESSION: 1. No deep venous thrombosis in the left lower limb. Reviewed, dictated and finalized at location A.
== END 2021-02-21 14:55 | disposition home or self-care (01) ==
LOC: CHSIMG 14:56
PROVIDERS: PCP Internal Medicine; Visit Provider Internal Medicine Cardiovascular Disease
DX: R60.0 Localized edema (principal)
CPT/HCPCS: 93971

== ENCOUNTER 2023-03-14 16:21 | Emergency (ER) | payer OTHER, SELFPAY ==
[2023-03-14] VITALS (41 sets, daily range): BP systolic 124–175; BP diastolic 65–92; PULSE 78–205; RESP 10–25; TEMP 36.7–37.3; O2SAT 93–97
--- NOTE | 2023-03-14 16:25 | ECG_ITS ---
Measurements Intervals [place] Rate: 200 P: [place]: 0 QRS: 1 QRSD: 87 T: 224 QT: 221 QTc: 404 Interpretive Statements SUPRAVENTRICULAR TACHYCARDIA LEFT VENTRICULAR HYPERTROPHY AND ST-T CHANGE ST-T WAVE ABNORMALITY IN DIFFUSE LEADS- CONSIDER ISCHEMIA OR RATE RELATED ABNORMAL ECG COMPARED TO ECG 01/20/2021 17:34:29 SUPRAVENTRICULAR TACHYCARDIA NOW PRESENT ST-T WAVE ABNORMALITY NOW PRESENT Electronically Signed On 03-14-2023 18:59:20 CDT by Paco Anderson D.O.
--- NOTE | 2023-03-14 16:27 | ED.ARRPALP ---
HPI - Arrhythmia/Palpitations General Chief Complaint: Arrhythmia/Palpitations Stated Complaint: rapid heart rate Time Seen by Provider: 03/14/23 16:26 Source: patient Mode of arrival: ambulatory History of Present Illness HPI narrative: 62-year-old with a history of obesity, hypertension, dyslipidemia, SVT on diltiazem and losartan presents to the ER with -- palpitation. this is similar to her prior episodes of SVT. this started an hour and a half ago and she tried vagal maneuvers including throwing some cold water on her face and bearing down. None of these maneuvers were able to terminate her SVT. Patient denied any chest pain or shortness of breath. No lightheadedness MD complaint: rapid heart beat Onset (ago): minute(s) ( started 90 minutes ago) Duration: constant Severity: moderate Context: occurred during rest Arrhythmia history: SVT Associated symptoms: denies other symptoms Treatments prior to arrival: vagal maneuvers Related Data Home Medications Medication Instructions Recorded Confirmed vitamin D3 2,500 unit-folic acid 1 1 tablet PO DAILY 12/29/19 03/14/23 mg tablet (Noxifol-D3) cugnedzx-ieh-hhfov ac 400 tablet PO 02/21/21 03/12/23 mcg-calcium carb 500 mg-vit K1 20 mcg tablet (Women's 50 Plus Multivitamin) atorvastatin 20 mg tablet 20 mg PO DAILY 03/12/23 03/14/23 Allergies Allergy/AdvReac Type Severity Reaction Status Date / Time No Known Drug Allergies Allergy Unknown none Verified 03/14/23 16:37 Review of Systems Review of Systems: All systems reviewed & are unremarkable except as noted in HPI and below Constitutional: Constitutional: Reports as per HPI and Reports no additional constitutional complaints Eyes: Eyes: Reports as per HPI and Reports no additional eye complaints ENT: Reports system reviewed and no additional complaints, except as documented and Reports as per HPI Cardiovascular: Cardiovascular: Reports no additional cardiovascular complaints and Reports rapid heart rate Respiratory: Respiratory: Reports as per HPI and Reports no additional respiratory complaints Gastrointestinal: Gastrointestinal: Reports as per HPI and Reports no additional gastrointestinal complaints Musculoskeletal: Musculoskeletal: Reports no additional musculoskeletal complaints Integumentary/Breasts: Skin/Breast: Reports system reviewed and no additional complaints, except as docu and Reports as per HPI Neurologic: Reports system reviewed and no additional complaints, except as documented and Reports as per HPI Psychiatric: Psychiatric: Reports no additional psychiatric complaints and Reports as per HPI Endocrine: Endocrine: Reports no additional endocrine complaints and Reports as per HPI Hematologic/Lymphatic: Hematologic/Lymphatic: Reports no additional hematologic/lymphatic complaints and Reports as per HPI Allergic/Immunologic: Allergic/Immunologic: Reports no additional allergic/immunologic complaints and Reports as per HPI [facility] Past Medical History Medical History Body mass index [BMI] 36.0-36.9, adult (01/21/18) Dyslipidemia Hypertension Obesity (BMI 35.0-39.9 without comorbidity) Surgical History Surgical History History of appendectomy Family History Family History Mother Hypertension Family history of elevated blood lipids Family history of chronic obstructive pulmonary disease Father Family history of cardiovascular disease Social History Social History Smoking status: Never smoker Alcohol intake: never Substance use: never Substance use type: does not use Gender identity (if verbalized by the patient): Female Spiritual care concerns: No Exam Const: General: healthy appearing and no acute distress Nutritional Appearance:
[2023-03-14 17:01] LABS: Basophils Absolute Auto 0.08 K/mm3 (0.00-0.10); Basophils Percent Auto 0.7 % (0.0-1.0); Eosinophils Absolute Auto 0.13 K/mm3 (0.02-0.50); Eosinophils Percent Auto 1.2 % (1.0-6.0); Hematocrit 44.1 % (35.0-49.0); Hemoglobin 14.8 g/dL (12.0-15.0); Immature Granulocyte Absolute 0.02 K/mm3 (0.00-0.00); Immature Granulocyte Percent A 0.2 % (0.0-0.0); Lymphocytes Absolute Auto 3.69 K/mm3 (1.10-4.50); Lymphocytes Percent Auto 33.2 % (18.0-42.0); Mean Corpuscular HGB Conc 33.6 g/dL (32.0-36.0); Mean Corpuscular Hemoglobin 31.2 pg (27.0-31.0); Mean Platelet Volume 8.9 fl (9.2-11.8); Monocytes Absolute Auto 0.82 K/mm3 (0.10-0.90); Monocytes Percent Auto 7.4 % (2.0-11.0); Neutrophils Absolute Auto 6.4 K/mm3 (1.7-7.2); Neutrophils Percent Auto 57.3 % (50.0-70.0); Platelet Count Result 469 K/mm3 (150-420); Red Blood Count 4.74 M/mm3 (4.20-5.40); Red Cell Distribution Width 11.9 % (11.6-14.4); White Blood Count 11.1 K/mm3 (4.8-10.8)
[2023-03-14 17:02] LABS: Appearance Urine Clear (Clear); Bilirubin Urine Negative (Negative); Blood Urine Negative (Negative); Color Urine Light Yellow (Yellow); Glucose Urine UA Negative (Negative); Ketones Urine Negative (Negative); Leukocyte Esterase Ur 2+ LEU/UL (Negative); Nitrate Urine Negative (Negative); Protein Urine Negative (Negative); Specific Grav Ur <= 1.005 (1.010-1.020); Urobilinogen Urine 0.2 mg/dL (0.2-1.0); pH Urine 6.5 (5.0-8.0)
[2023-03-14 17:09] LABS: Add Urine Microscopic? YES; Bacteria Urine Trace /hpf; RBC Urine None seen /hpf (0-2); Squamous Epithelial Cell Urine Rare /hpf (Few)
[2023-03-14 17:20] LABS: Lactic Acid Reflex 1.3 mmol/L (0.4-2.0)
[2023-03-14 17:25] LABS: Alanine Aminotransferase 27 U/L (14-59); Albumin Level 3.8 g/dL (3.4-5.0); Alkaline Phosphatase 120 U/L (46-116); Anion Gap 11 mmol/L (8-16); Aspartate Amino Transferase 18 U/L (15-37); Bilirubin,Total 0.3 mg/dL (0.00-1.00); Blood Urea Nitrogen 14 mg/dL (7-18); Calcium 9.3 mg/dL (8.5-10.1); Carbon Dioxide 25 mmol/L (21-32); Chloride 106 mmol/L (98-108); Estimated CRCL calculation 53 ml/min; Estimated Glomerular Filt Rate 58; Glucose 124 mg/dL (70-99); NT Pro B Type Natriuretic Pept 117 pg/mL (0-125); Osmolality Calculated 295 mOsm/kg (285-295); Potassium 3.3 mmol/L (3.5-5.1); Sodium 142 mmol/L (136-145); Total Protein 8.1 g/dL (6.4-8.2); Troponin I 11.1 ng/L (0.00-60.4)
[2023-03-14] MEDS: POTASSIUM BICARBONATE 25 MEQ TABEF 50 MEQ PO (18:20)
[2023-03-14] MEDS: KCL 20 MEQ/SW 100 ML 100 ML 50 MEQ IVPB (18:20)
--- NOTE | 2023-04-05 11:18 | PC.NURSE ---
FINAL URINE CULTURE RESULTS: MIXED CORIE ISOLATED. NO ACTION NEEDED.
== END 2023-03-14 20:18 | disposition home or self-care (01) ==
PROVIDERS: Emergency Provider Internal Medicine Critical Care Medicine; PCP Internal Medicine
DX: I47.1 Supraventricular tachycardia (principal); E87.6 Hypokalemia; N30.00 Acute cystitis without hematuria; I10 Essential (primary) hypertension; E78.5 Hyperlipidemia, unspecified; E66.9 Obesity, unspecified; Z68.37 Body mass index [BMI] 37.0-37.9, adult
CPT/HCPCS: 36415; 80053; 81001; 83605; 83735; 83880; 84443; 84484; 85025; 87086; 87088; 93005; 96365; 96366; 96375; 99284; A9270; J0153; J3480

== ENCOUNTER 2024-01-07 13:49 | Emergency (ER) | payer BC, SELFPAY ==
[2024-01-07] VITALS (16 sets, daily range): BP systolic 135–162; BP diastolic 66–124; PULSE 81–210; RESP 12–22; TEMP 36.9; O2SAT 93–96
--- NOTE | ~2024-01-07 | XR_ITS ---
XR chest 1V portable DATE: 01/07/2024 14:20 INDICATION: Supraventricular tachycardia TECHNIQUE: Portable upright AP chest on 01/07/2024 at 1423 hours COMPARISON: None FINDINGS: Heart size appears within normal range. No hilar or mediastinal enlargement. No pulmonary i nfiltrate or consolidation, pleural effusion or pulmonary vascular congestion or pneumothorax. Included skeletal structures are unremarkable other than dextro scoliosis and degenerative spurring o f the thoracic spine. IMPRESSION: No active cardiopulmonary disease Reviewed, dictated and finalized at location B.
[2024-01-07] MEDS: SODIUM CHLORIDE 0.9% IV 1,000 ML 999 ML IV CONT (14:05)
[2024-01-07] MEDS: dilTIAZem HCL CD 240 MG CAP.24HR PO (14:09)
--- NOTE | 2024-01-07 14:13 | PC.NURSE ---
Valsalva maneuver performed with ERP at bedside at 13:58. No change in HR. Adenosine given. Pt tolerated well and HR decreased to 104.
--- NOTE | 2024-01-07 14:15 | ECG_ITS ---
Measurements Intervals [place] Rate: 200 P: CT: 0 QRS: 45 QRSD: 101 T: -85 QT: 219 QTc: 399 Interpretive Statements SUPRAVENTRICULAR TACHYCARDIA LEFT VENTRICULAR HYPERTROPHY WITH ST-T CHANGE ST-T WAVE ABNORMALITY IN ANTEROLAT/INF LEADS- CONSIDER ISCHEMIA BASELINE WANDER- I, II, III ABNORMAL ECG COMPARED TO ECG 03/14/2023 16:30:32 NO SIGNIFICANT CHANGES Electronically Signed On 01-07-2024 14:41:16 CDT by Paco Anderson D.O.
[2024-01-07 14:19] LABS: Basophils Absolute Auto 0.08 K/mm3 (0.00-0.10); Basophils Percent Auto 0.7 % (0.0-1.0); Eosinophils Absolute Auto 0.07 K/mm3 (0.02-0.50); Eosinophils Percent Auto 0.6 % (1.0-6.0); Hematocrit 44.7 % (35.0-49.0); Immature Granulocyte Absolute 0.02 K/mm3 (0.00-0.00); Immature Granulocyte Percent A 0.2 % (0.0-0.0); Lymphocytes Absolute Auto 2.78 K/mm3 (1.10-4.50); Lymphocytes Percent Auto 24.8 % (18.0-42.0); Mean Corpuscular HGB Conc 33.6 g/dL (32-36); Mean Corpuscular Hemoglobin 31.1 pg (27.0-31.0); Mean Corpuscular Volume 92.5 fL (78.0-102.0); Monocytes Absolute Auto 0.74 K/mm3 (0.10-0.90); Monocytes Percent Auto 6.6 % (2.0-11.0); Neutrophils Absolute Auto 7.54 K/mm3 (1.70-7.20); Neutrophils Percent Auto 67.1 % (50.0-70.0); Platelet Count Result 474 K/mm3 (150-420); Red Blood Count 4.83 M/mm3 (4.20-5.40); Red Cell Distribution Width 12.4 % (11.6-14.4); White Blood Count 11.2 K/mm3 (4.8-10.8)
--- NOTE | 2024-01-07 14:23 | ECG_ITS ---
Measurements Intervals [place] Rate: 102 P: 45 IN: 141 QRS: 27 QRSD: 84 T: -10 QT: 302 QTc: 395 Interpretive Statements SINUS TACHYCARDIA LEFT VENTRICULAR HYPERTROPHY AND ST-T CHANGE CONSIDER INFERIOR INFARCT, AGE INDETERMINATE BASELINE ARTIFACT- V4-V6 ABNORMAL ECG COMPARED TO ECG 01/07/2024 13:57:27 SINUS TACHYCARDIA NOW PRESENT Electronically Signed On 01-07-2024 14:41:59 CDT by Paco Anderson D.O.
--- NOTE | 2024-01-07 14:26 | ED.ARRPALP ---
HPI - Arrhythmia/Palpitations General Chief Complaint: Chest Pain Stated Complaint: rapid heart rate Time Seen by Provider: 01/07/24 13:50 History of Present Illness HPI narrative: This is a 63-year-old female, with history of SVT and planned ablation scheduled for this Sunday, who presents to the emergency department complaining of palpitations since yesterday evening. She denies associated pain and states this feels similar to episodes of SVT. She tried Valsalva maneuvers at home 2-3 times without success. She denies recent change in medications or health, aside from some increased frequency of urination. she states she takes her diltiazem in the evenings and did so yesterday. She has no other complaints at this time. Related Data Home Medications Medication Instructions Recorded Confirmed zqaipcsd-aqm-ecikz ac 400 1 tablet PO DAILY 02/21/21 01/07/24 mcg-calcium carb 500 mg-vit K1 20 mcg tablet (Women's 50 Plus Multivitamin) coenzyme Q10 200 mg capsule 200 mg PO DAILY 09/26/23 01/07/24 diltiazem HCl 240 mg 240 mg DAILY 01/07/24 01/07/24 capsule,extended release 24 hr losartan 25 mg tablet 25 mg DAILY 01/07/24 01/07/24 Allergies Allergy/AdvReac Type Severity Reaction Status Date / Time No Known Drug Allergies Allergy Unknown none Verified 11/09/23 11:19 Review of Systems Review of Systems: CONSTITUTIONAL: Denies fever, chills, or sweats. CARDIOVASCULAR: Palpitations Denies chest pain, or edema. RESPIRATORY: Denies cough or dyspnea. GASTROINTESTINAL: Denies abdominal pain, nausea, vomiting, or diarrhea. GENITOURINARY: Increased urinary frequency Denies dysuria or hematuria. SKIN: Denies rash or itching. MUSCULOSKELETAL: Denies back pain, joint pain, or myalgia. NEUROLOGIC: Denies headache, numbness, dizziness, or weakness. PSYCHIATRIC: Denies anxiety or depression. [facility] Past Medical History Medical History (Updated 01/07/24 @ 15:04 by Ottoniel Ruffin MD) Body mass index [BMI] 36.0-36.9, adult (01/21/18) Dyslipidemia Hypertension Obesity (BMI 35.0-39.9 without comorbidity) Paroxysmal supraventricular tachycardia Surgical History Surgical History History of appendectomy Family History Family History Mother Hypertension Family history of elevated blood lipids Family history of chronic obstructive pulmonary disease Father Family history of cardiovascular disease Social History Social History Smoking status: Never smoker Alcohol intake: never Substance use: never Substance use type: does not use Gender identity (if verbalized by the patient): Female Spiritual care concerns: No Exam Narrative: GENERAL: Well-developed, well-nourished, and in no acute distress. HEAD: Normocephalic, atraumatic. EYES: PERRLA and EOMI. CHEST: Clear to auscultation. No respiratory distress. No wheezes rales or rhonchi HEART: Tachycardic with regular rhythm. No murmur heard. Normal peripheral pulses. ABDOMEN: Soft, nontender, nondistended, normal active bowel sounds. EXTREMITIES: Normal range of motion. No edema. SKIN: Warm, dry, no rash. NEURO: Alert and oriented x3. No focal deficit. Moving all 4 limbs spontaneously PSYCH: Normal mood and affect. Course Course Emergency Course: 13:59 - The patient arrived tachycardic and when placed on the monitor appeared to be in SVT with a rate of approximately 210. An attempt with Valsalva maneuver was not successful. The patient was given 6 mg IV adenosine push with conversion to sinus tachycardia. The patient denies chest pain. Will give her normal p.o. dose of diltiazem now in addition to IV fluids. Will observe and obtain labs. 15:00 - CBC demonstrates a mildly elevated white blood cell count of 11.2 but is otherwise unremarkable. Chemistries within normal limits, inclu
[2024-01-07 14:41] LABS: Appearance Urine Clear (Clear); Bilirubin Urine Negative (Negative); Blood Urine Negative (Negative); Color Urine Light Yellow (Yellow); Glucose Urine UA Negative (Negative); Ketones Urine Negative (Negative); Leukocyte Esterase Ur 1+ LEU/UL (Negative); Nitrate Urine Negative (Negative); Protein Urine Negative (Negative); Specific Grav Ur <= 1.005 (1.010-1.020); Urobilinogen Urine 0.2 mg/dL (0.2-1.0)
[2024-01-07 14:44] LABS: Alanine Aminotransferase 54 U/L (14-59); Albumin Level 3.9 g/dL (3.4-5.0); Alkaline Phosphatase 132 U/L (46-116); Anion Gap 14 mmol/L (8-16); Aspartate Amino Transferase 28 U/L (15-37); Bilirubin,Total 0.5 mg/dL (0.00-1.00); Blood Urea Nitrogen 14 mg/dL (7-18); Calcium 9.3 mg/dL (8.5-10.1); Carbon Dioxide 26 mmol/L (21-32); Chloride 105 mmol/L (98-108); Estimated CRCL calculation 53 ml/min; Estimated Glomerular Filt Rate 59; Glucose 143 mg/dL (70-99); Magnesium 2.1 mg/dL (1.8-2.4); Osmolality Calculated 302 mOsm/kg (285-295); Sodium 145 mmol/L (136-145); Thyroid Stimulating Hormone 2.87 uIU/mL (0.36-3.74); Total Protein 8.3 g/dL (6.4-8.2)
[2024-01-07 14:47] LABS: Add Urine Microscopic? YES; Amphetamine Screen Urine Negative (Negative); Barbiturate Screen Urine Negative (Negative); Benzodiazepines Screen Urine Negative (Negative); Cannabinoid Screen Urine Negative (Negative); Cocaine Screen Urine Negative (Negative); Methadone Screen Urine Negative (Negative); Opiate Screen Urine Negative (Negative); Phencyclidine Screen Urine Negative (Negative)
[2024-01-07 14:48] LABS: Bacteria Urine 1+ /hpf; RBC Urine None seen /hpf (0-2); Squamous Epithelial Cell Urine Rare /hpf (Few); WBC Urine 0-3 /hpf (0-3)
--- NOTE | 2024-01-07 15:15 | PC.NURSE ---
Pt ambulated down hallway and back to room. HR did not go above 112. Pt states that she felt fine during the walk. ERP aware.
--- NOTE | 2024-01-09 13:17 | PC.NURSE ---
urine culture reviewed, no growth noted.
== END 2024-01-07 15:31 | disposition home or self-care (01) ==
PROVIDERS: Emergency Provider Preventive Medicine Aerospace Medicine; PCP Internal Medicine
DX: I47.10 Supraventricular tachycardia, unspecified (principal); R00.2 Palpitations; E78.5 Hyperlipidemia, unspecified; I10 Essential (primary) hypertension; I48.0 Paroxysmal atrial fibrillation; Z79.899 Other long term (current) drug therapy
CPT/HCPCS: 36415; 71045; 80053; 80307; 81001; 83735; 84443; 85025; 87086; 93005; 96361; 96374; 99284; A9270; J0153; J7030

== ENCOUNTER 2024-04-25 10:02 | Outpatient (CLI) | payer BC, SELFPAY ==
--- NOTE | ~2024-04-25 | MM_ITS ---
EXAMINATION: MM screening tonio BI w queta HISTORY: Screening mammogram TECHNIQUE: Craniocaudal and mediolateral oblique 3-D tomosynthesis images were obtained and synthetic 2-D images were generated. CAD analysis was submitted and interpreted. COMPARISON: 11/29/2019, 11/07/2018, 04/12/2018 BREAST PARENCHYMAL COMPOSITION:Not Dense. The breasts are almost entirely fatty FINDINGS: No suspicious mass, calcification, or architectural distortion are identified in either [place] ast to suggest malignancy. There has been no suspicious interval change. IMPRESSION: No mammographic evidence of malignancy. Recommend routine screening mammography in one year. BI-RADS Category 1: Negative Reviewed, dictated and finalized at location .
== END 2024-04-25 10:03 | disposition home or self-care (01) ==
LOC: ANHIMG 10:04
PROVIDERS: PCP Internal Medicine; Visit Provider Nurse Practitioner Obstetrics & Gynecology
DX: Z12.31 Encounter for screening mammogram for malignant neoplasm of breast (principal)
CPT/HCPCS: 77063; 77067

== ENCOUNTER 2025-01-07 08:00 | Outpatient (CLI) | payer BC, SELFPAY ==
--- OUTSIDE RECORDS SUMMARY | 2025-01-07 08:10 | XMS_ITS | Clinical Summary ---
Author Organization [facility] Address [address] [place] [address] Care Team Providers Care Expediter Clerk Name Role Phone Navin Lucas MD Primary Care Provider [phone] Paco Anderson DO Unavailable Allergies No known active allergies Medications atorvastatin (LIPITOR) 20 MG tablet Take 1 tablet (20 mg total) by mouth nightly at bedtime. Active dilTIAZem CD (CARDIZEM CD) 240 MG 24 hr capsule Take 120 mg by mouth daily. Active Coenzyme Q10 (COQ-10) 200 MG Cap Take by mouth daily. Active losartan (COZAAR) 25 MG tablet Take 1 tablet (25 mg total) by mouth daily. Active Magnesium 500 MG Tab daily. 08/22/2023 Active Multiple Vitamins-Minera ls (EMERGEN-C IMMUNE OR) Take by mouth daily. Active Active Problems Problem Noted Date Diagnosed Date SVT (supraventricular tachycardia) ([facility]/HCC) Dyslipidemia 12/04/2023 Essential (primary) hypertension 12/04/2023 Palpitations 12/04/2023 Family History Medical History Relation Comments CABG Father Heart Disease Father COPD Mother Hyperlipidemia Mother Hypertension Mother Relation Status Comments Father Mother Social History Tobacco Use Types Packs/Day Years Used Date Smoking Tobacco: Never Passive Smoke Exposure: Never Smokeless Tobacco: Never Tobacco Cessation:Counseling Given: Not Answered Alcohol Use Standard Drinks/Week Comments Not Currently 0 (1 standard drink = 0.6 oz pur e alcohol) Comments Unknown Sex and Gender Information Value Date Recorded Sex Assigned at Not on file 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 Gender Identity Not on file Sexual Orientation Not on file Last Filed Vital Signs Vital Sign Reading Time Taken Comments Blood Pressure 150/92 02/14/2024 1:35 PM CDT Pulse 77 02/14/2024 1:35 PM CDT Temperature 36.3 C (97.3 F) 01/11/2024 3:45 PM CDT Respiratory Rate 20 01/11/2024 6:15 PM CDT Oxygen Saturation 96% 02/14/2024 1:35 PM CDT Inhaled Oxygen Concentration - - Weight 88.1 kg (194 lb 3.2 oz) 02/14/2024 1:35 P M CDT Height 152.4 cm (5') 02/14/2024 1:35 PM CDT Body Mass Index 37.93 02/14/2024 1:35 PM CDT Plan of Treatment Health Maintenance Due Date Last Done Comments Cervical Cancer Screening Pa p Smear (Age 30 to 64) Every 3 Years 1961 Colorectal Cancer Screening Colonoscopy (10 Years) 1961 Annual Physical 1964 Hepatitis C 1979 DTaP, Tdap and Td Vaccines ( 1 - Tdap) 1980 Cervical Cancer Screening Pa p with HPV Testing (Age 30 to 64) Every 5 Years 1991 Cervical Cancer Screening with HPV 1991 Mammogram Screening 2001 Zoster Vaccines (1 of 2) 2011 COVID-19 Vaccine (2023-2 5 season) 2024 Influenza Adult (#1) 2024 RSV Immunization or 60+ Years (1 - 1-dose 75+ series) 2036 Meningococcal B Vaccine Aged Out No l onger eligible based on patient's age to complete this topic Meningococcal Vaccine Aged Out No huang alisha eligible based on patient's age to complete this topic Pneumococcal Vaccine: Pediat rics (0 to 5 Years) and At-Risk Patients (6 to 64 Years) Aged Out No longer eligible b ased on patient's age to complete this topic RSV Immunizations Under 20 Months Aged Out No longer eligible based on patient's age to complete this topic Insurance [employer] Advance Directives * Full Code (Latest Code Status on File) Date Activated Date Inactivated Comments 01/11/2024 4:37 PM 01/11/2024 8:50 PM Care Teams Expediter Clerk Relationship Specialty Start Date End Date Navin Lucas MD [address] [place] [address] PCP - General INTERNAL MEDICINE 11/19/23 Paco Anderson DO [address] [place], [place] [id number] INTERNAL MEDICINE 11/19/23
--- OUTSIDE RECORDS SUMMARY | 2025-01-07 08:10 | XMS_ITS | Data Portability ---
Author Organization [facility] [place] Address [address] [place] [address] Care Team Providers Care Design Studio Consultant Name Role Phone EBONIE JAIMES Primary Care Provider [phone] Assessment Encounter Date Assessment Date Assessment LastModified by Organization Details LastModified Time 03/18/2024 03/18/2024 Annual gynecological exam performed. Patient will come back in a year unless there are new symptoms. [email or web address] Not available 03/18/2024 11:02:59 Plan of Treatment Reminders Order Date Submit Date Provider Last Modified By Organization Details Last Modified Time Details Appointments None recorded. Lab None recorded. Referral None recorded. Procedures None recorded. Surgeries None recorded. Imaging MAMMO, screening, bilateral 2023 024 [email or web address] [facility], [address], [place], [address], 11:04:44 Medication Orders triamcinolo ne acetonide 0.1 % topical ointment 2023 024 DONAVAN [facility], [place], [place], [id number], 11:20:01 Patient TargetsNo targets recorded. Patient InstructionsNo instructions recorded. Reason for Referral None Reported. 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 Atrop hic cell ab irving. Malika abdi by Sharon Laurent ed, CT on 2023 at 10:23 PM ----- ----- ----- ----- ----- ----- ----- ----- ----- ----- ----- ----- ----- ----- ----- ----- ----- ---- HPV RESUL TS: HPV mRNA E6/E7 : No HPV mRNA Detec sandeep NOTE: This high risk HPV mRNA assay detec ts fourt een high- risk HPV types (16, 18, 31, 33, 35, 39, 45, 51, 52, 56, 58, 59, 66, 68) witho ut diffe renti ation . COMME NT: This speci men was revie wed by a Cytot echno logis t and/o r Patho logis t (as indic ated in this repor t) after evalu ation using the Thinp rep Imagi ng Syste m. CLINI CLEMENTE INFOR MATIO N: Menst rual Statu s: LMP (if appli cable ): Clini clemente Histo ry/Pr eviou s Pap: Type of Neopl tamara (if appli cable ): Signi fican t Clini clemente Findi ngs: Other Histo ry: Hormo guicho (if appli cable ): PAP EDUCA JHON L NOTE: The Pap Test is a scree zuleima test with an inher ent false negat uriel rate. Liqui d-bas ed sampl ing may decre ase, but will not elimi isidra, false negat uriel resul ts. A negat uriel resul t does not precl ude the prese nce and/o r devel opmen t of disea se, since the prese nce of abnor mal cells in the sampl e depen ds on the locat ion of the lesio n and sampl ing techn ique. Ronak nued regul ar scree zuleima is the best metho d of cance r preve ntion . If repor sandeep cytol ogic findi ng do not corre late with physi clemente and/o r histo rical findi ngs, furth er inves tigat ion is recom jj d, as clini lisa pina nted. Not Available [facility] (Lab) [address], [place], [address], 03/20/2024 23:27:01 Result Notes None recorded. Problems Name Problem SNOMED Code Status Onset Date Resolution Date Notes Provider Name and Address Organization Details Recorded Time Hypertens uriel disorder 53592315 Active 2015 HTN;Record ed Elsewhere: No Locatio n: [facility] Katie rce: EHR Chroni c: N Practice ID: [id number] Billjeremiah ble Time: 10:30:00 AM Not Available [facility] 0 14:44:05 History of cardiovas cular surgery 273986032 Active 2023 heart ablation / elevated heart rate Leonela Owusu [facility], [place] - [facility] 4 11:07:29 Problem Notes None recorded. Procedures Surgical History Date Name Laterality Status Provider Name and Address Organization Details Recorded Time 03/18/20 24 Date of Last Pap Smear completed [facility] 03/18/2024 17:50:44 01/11/20 24 catheter ablation of tissue of heart completed [facility] 03/18/2024 11:11:38 04/21/20 23 mohs surgery completed [facility] 03/18/2024 11:11:20 10/22/19 16 Date of Last Colonoscopy completed [facility] 05/13/2024 14:21:05 10/22/19 16 Colonoscopy completed [facility] 05/13/2024 14:26:27 10/22/18 74 Appendectomy completed [facility] 03/18/2024 11:10:41 10/22/18 74 Appendectomy completed [facility] 05/13/2024 14:26:55 Imaging Results None recorded. Procedure Notes None recorded. Medical Equipment None Reported. Allergies No known drug allergies Medications Name Sig Start Date Stop Date Status Note LastModified by Organization Details LastModified Time atorvasta tin 40 mg tablet take 1 tablet by oral route every day 03/18 completed Prescrib ed Elsewher e: Yes Loca tion: Danny [facility] M odify By: jose luis lazcano DateTime : 08/01/20 17 02:30:00 PM Not Available Not Available Not Available atorvasta tin 20 mg tablet active Not Available Not Available Not Available diltiazem ER (XR/XT) 240 mg capsule,e xtended release 24 hr, controlle d active Not Available Not Available Not Available diltiazem CD 240 mg capsule,e xtended release 24 hr active Not Available Not Available Not Available ibuprofen 200 mg capsule take 1 capsule by oral route every 6 hours as needed 03/18 completed Prescrib ed Elsewher e: Yes Loca tion: Danny jordan [facility] odify By: carmen Jordan ncounter DateTime : 08/12/20 13 10:30:00 AM Not Available Not Available Not Available diltiazem ER 300 mg capsule,2 4 hr,extend ed release take 1 capsule by oral route every day 03/18 completed Prescrib ed Elsewher e: Yes Loca tion: Danny jordan [facility] odify By: jose luis Jordan ncounter DateTime : 08/01/20 17 02:30:00 PM Not Available Not Available Not Available amoxicill in 500 mg tablet take 1 tablet by oral route 3 times every day 08/17 completed Prescrib ed Elsewher e: No Locat ion: Danny jordan [facility] odify By: adelina Jordan ncounter DateTime : 07/27/20 16 02:05:49 PM Not Available Not Available Not Available verapamil 120 mg tablet 08/12 completed Prescrib ed Elsewher e: Yes Loca tion: Danny jordan [facility] odify By: carmen Jordan ncounter DateTime : 06/09/20 13 10:00:00 AM Not Available Not Available Not Available Cipro 500 mg tablet take 1 tablet by oral route every 12 hours 08/17 completed Prescrib ed Elsewher e: No Locat ion: Danny [facility] odify By: amnate Jordan ncounter DateTime : 07/15/20 15 11:00:00 AM Not Available Not Available Not Available triamcino lone acetonide 0.1 % topical ointment APPLY A THIN LAYER TO THE AFFECTED AREA(S) BY TOPICAL ROUTE 2 TIMES PER DAY PRN active Not Available Not Available No t Available ranitidin e 150 mg tablet take 1 tablet by oral route 2 times every day 10/29 completed Prescrib ed Elsewher e: Yes Loca tion: Danny jordan [facility] odify By: stephenie de diosunter DateTime : 08/01/20 17 02:30:00 PM Not Available Not Available Not Available losartan 25 mg tablet active Not Available Not Available Not Available verapamil ER (PM) 100 mg capsule 24hr pellet CT,ext.re lease take 1 capsule by oral route every day at bedtime 08/01 completed Prescrib ed Elsewher e: Yes Loca tion: [facility] odify By: jose luis Marco ncounter DateTime : 06/02/20 14 11:00:00 AM Not Available Not Available Not Available magnesium 200 mg tablet active Not Available Not Available Not Available CoQ10 active Not Available Not Availa ble Not Available Tylenol 325 mg capsule 03/18 completed Prescrib ed Elsewher e: Yes Loca tion: [facility] odify By: stephenie Jordan ncounter DateTime : 10/29/19 10:15:00 AM Not Available Not Available Not Available Vitals Date Recorded Body height Body mass index (BMI) Body weight Provider Name and Address Organization Details Last Updated DateTime 03/18/2024 146.05 cm 41.5 kg/m2 02366.51 g Leonela Owusu [facility] 03/18/2024 11:03:50 Date Recorded Systolic blood pressure Diastolic blood pressure Provider Name and Address Organization Details Last Updated DateTime 03/18/2024 132 mm[Hg] 76 mm[Hg] Zuleima Gipson, [facility]- [address], [place], [address], [facility] 03/18/2024 11:22:08 Social History Question Answer Notes LastModified by Organizat ion Details LastModified Time Tobacco Smoking Status Never Smoker Leonela Owusu null, [facility] 03/18/2024 11:10:29 What Is Your Level Of Alcohol Consumption? None [email or web address] Information not available 03/18/2024 Are You Blind Or Do You Have Difficulty Seeing? No [email or web address] Information n ot available 03/18/2024 What Is Your Level Of Caffeine Consumption? Occasional [email or web address] Information not available 03/18/2024 How Much Tobacco Do You Chew? None [email or web address] Information not available 03/18/2024 In The 14 Days Before Symptom Onset, Have You Had Close Contact With A Laboratory-confirm ed COVID-19 While That Case Was Ill? No [email or web address] Information n ot available 03/18/2024 In The 14 Days Before Symptom Onset, Have You Had Close Contact With A Person Who Is Under Investigation For COVID-19 While That Person Was Ill? No [email or web address] Information not available 03/18/2024 Have You Been To An Area Known To Be High Risk For COVID-19? No [email or web address] Information not available 03/18/2024 Are You Deaf Or Do You Have Serious Difficulty Hearing? No [email or web address] Information not available 03/18/2024 What Type Of Diet Are You Following? CARBOHYDRATE [email or web address] Information n ot available 03/18/2024 What Is The Highest Grade Or Level Of School You Have Completed Or The Highest Degree You Have Received? UK20137-4 [email or web address] Information not available 03/18/2024 Do You Use Protection During Sex? No [email or web address] Information not available 03/18/2024 Do You Use Your Seat Belt Or Car Seat Routinely? Yes [email or web address] Information not available 03/18/2024 Do You Have Smoke And Carbon Monoxide Detectors In Your Home? Yes [email or web address] Information not available 03/18/2024 How Much Tobacco Do You Smoke? No Information not available 03/18/2024 Do You Feel Stressed (tense, Restless, Nervous, Or Anxious, Or Unable To Sleep At Night)? FL22914-6 [email or web address] Information not available 03/18/2024 Do You Use Any Illicit Or Recreational Drugs? No [email or web address] Information not available 03/18/2024 Do You Use Sunscreen Routinely? Yes [email or web address] Information not available 03/18/2024 Has Tobacco Cessation Counseling Been Provided? No [email or web address] Information not available 03/18/2024 Do You Or Have You Ever Used Any Other Forms Of Tobacco Or Nicotine? No [email or web address] Information not available 03/18/2024 Sex: Unknown Functional Status Question Answer Note LastModified by Organizat ion Details LastModified Time Do you have difficulty walking or climbing stairs? No [email or web address] Information not available 03/18/2024 Are you able to walk? YESWOREST [email or web address] Information not available 03/18/2024 Are you able to care for yourself? Yes [email or web address] Information not available 03/18/2024 Do you have difficulty dressing or bathing? No [email or web address] Information not available 03/18/2024 What is your exercise level? Moderate Information not available 03/18/2024 Mental Status None recorded. Family History Relationship Description Onset Age of this Age Resolved Age Notes LastModified by Organization Details LastModified Time Father Heart disease [email or web address] Not available 03/18 11:04:33 Paternal Grandmother Heart disease [email or web address] Not available 03/18 11:04:33 Mother Malignant tumor of lung [email or web address] Not available 03/18 11:04:34 Mother Osteoporosis [email or web address] Not narinder ilable 03/18/2024 11:04:34 Maternal Aunt Malignant tumor of colon [email or web address] Not available 03/18 11:04:34 Maternal Grandmother Osteoporosis [email or web address] Not availabl e 03/18/2024 11:04:34 Sister Malignant tumor of ovary [email or web address] Not available 03/18 11:04:34 Maternal Grandfather Malignant tumor of lung [email or web address] Not available 03/18 11:04:34 Paternal Grandfather Heart disease [email or web address] Not available 03/18 11:04:34 Notes:Father: Hypertension M aternal aunt: Cancer, colon Maternal grandfather: Cancer, lung Mother: Hypertension Sister: Hypertension, Ovarian cancer Medical History Condition Response Other Y Blood Transfusion N Dermatologic Disorders N Gestational Diabetes N Anxiety Disorder Y Autoimmune disease N Arthritis N Infertility N Acid Reflux (GERD) N Cancer Y Varicosities N Stroke N Neurologic/Epilepsy N Fibromyalgia N Headaches N Kidney Disease N Heart Problems Y Kidney or Bladder Problems N Eating Disorder N Art (IVF or FET) N Hepatitis/Liver Disease N No Past Medical History N Urinary Tract Infection N Asthma N Trauma/Violence N Thrombophilias N Allergies (Food, seasonal, environmental ) N Breast Cancer N Drug/Latex Allergies/Reactions N Lung Disease N Defects or Inherited Disease N Breast Problem Y Hematologic disorders N Anesthesia Complications N History of STI N Deep Vein Thrombosis N Polycystic ovary syndrome N History of abnormal pap N Endometriosis N High Cholesterol Y Thyroid Problems N GI Problems N Anemia N Psychiatric Illness N Ovarian Cancer N Diabetes N Pulmonary (TB, Asthma) N Eczema N Abuse/Domestic Violence N Depression/ depression N Heart Disease Y Pre-Eclampsia N Hypertension Y Osteoporosis Y Gynecological History Statement/Question Response Abnormal Pap N Date of Last Mammogram Date of LMP 10/22/2006 On BCP's at Conception? N N Was last menstrual period normal Y STIs/STDs N HPV Vaccine N Current Control Method Menopause Age at First Child 21 If Post Menopausal, Age at Menopause 47 Date of Last Colonoscopy 10/22/2015 Sexually Active? Y Date of DEXA bone scan 2013 Age of first menstrual cycle 14 Date of Last Pap Smear 03/18/2024 Sexual Problems? N LMP Unknown N Obstetrics History GPAL:G 1 P 1 0 0 1 Type Value Full Term 1 Living 1 Total 1 Past Encounters Encounter ID Performer Location Encounter Start Date Encounter Closed Date Diagnosis/Indication Diagnosis SNOMED-CT Code Diagnosis ICD10 Code Diagnosis Note [id number] [facility] [address] [address] 03/18/2024 10:49:35 03/18/2024 11:26:22 Gynecologic examination 80253062 Z01.419 Take Calcium with Vitamin D 12-1500mg daily. Do monthly self breast exams. It is advised to get annual flu shot in the fall and she could obtain at [facility] or [facility] clinic. If you haven't received the Tdap vaccine in the last 10 years you should obtain one as well. Have mammogram yearly, bone density every 2-3 years and colonoscop y every 5-10 years depending on findings and history. Engage in daily exercise of low impact aerobic exercise 45-60 minutes 4-5 times weekly. Avoid tobacco and illicit drugs as well as using moderation with alcohol intake less than 1-2 8 oz beverages daily. This lifestyle behavior pattern will lead to less health conditions and longer life span. If BMI greater than 25 weight watchers or dietary consult advised. Questions have been answered. 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 [employer] [id number] L25.5 See PCP if sx's worsen or persist Health Concerns Section Related Observation LastModified by Organization Detai ls LastModified Time None Recorded Concern Status LastModified by Organization Details LastModified Time None Recorded Advance Directives Directive None Recorded Payers Encounter Date Sequence Insurance Name Policy Number Policy Shipman Covered Member ID Shipman Member ID Guarantor Name 03/18/2024 1 [place] [id number] Christina Saenz Liucherri [id number] Christina Liucherri Notes Date Note Type Note Provider Name and Address Organization Details Recorded Time 03/18/2024 text/html Annual Chief Nurse Anesthetist Post-MenopausalRe ported bypatient.Menopau davis Symptoms:no menopausal symptoms; normal vaginal lubrication Vaginal Bleeding:history of menopause having occurred; no history of post menopausal bleeding Urinary Symptoms:no hematuria; no incontinence; no nocturia; no urinary frequency Vulva:no genital lesion; no vulvar atrophy Vagina:normal vaginal discharge; no vaginal atrophy Breast:no breast lump; no nipple discharge; no breast pain Sexual Complaints:no sexual complaints Psychological Symptoms:no depression; no anxiety Preventive Measures:encourag e regular mammograms starting age 40; encourage self breast examination; encourage regular exercise; encourage no tobacco use; needs to schedule mammogram; history of recent colonoscopy (due 2023) Zuleima Gipson, [facility]- [address], [place], [address], [facility] 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 Status 03/18/20 24 1 CLOSED Fetus Data First Name Last Name Admitted to NICU Weight (g) Sex Living Outcome Pediatric Complications Fetus ID Race Codes Race Delivery Type 2976.47 [id number] F Full Term [id number] Vaginal Delivery Torsten Calculation Initial Torsten Date Initial Exam Date Initial Exam Provider Initial Ultrasound Date Last Menstrual Period Date Ultra Sound Weeks Gestation 0 Eighteen To Twenty Week Torsten Update Ultra Sound Date Fundal Height At Umbil Quickening Date Ultra Sound Latest Weeks Gestation Final Torsten Confirmed By Final Torsten Confirmed Date Final Torsten Date Ultra Sound Latest Days Gestation 0 0 Menstrual History Last Menstrual Date Menses Monthly On Bcp Conception Prior Menses Frequency Hcg Plus Date Menarche Onset Age Delivery Information Delivery Date Delivery Type Labor Anesthesia Weeks Gestation Incision Type Labor Labor Length Hrs Delivered By Post Complications Tubal Sterilization Discharge Date Comments 2 39 Discharge Information Feeding Method Contraceptive Method Maternal HG B and HCT Levels
[2025-01-19 14:41] VITALS: BMI 34.5
--- NOTE | 2025-01-19 14:41 | P.SLEEP_ITS ---
Sleep Study - Home Unattended Date of Study: 01/07/25 Ordering Provider: Paco Anderson DO Interpreting Provider: Candida Mckay DO Home Sleep Study Type: Watch PAT Height: 1.52 m Weight: 80.286 kg Body Mass Index: 34.5 Neck Circumference (inches): 14 [place]: 3 Reason for Sleep Study Cardiac arrhythmias Sleep History The patient is a 64-year-old female that had a sleep study ordered by her medical doctor md/medical director for evaluation of sleep apnea. The patient denies awakening from sleep short of breath. She occasionally awakens at night with heartburn, belching or cough. She occasionally snores but is never loud enough that others complain. She denies waking up gasping for air throughout the night. She denies having breathing problems at night observed by herself or others. She rarely sweats excessively at night. She occasionally has heart palpitations or irregular heartbeats during the night. She rarely falls asleep during the day and never while driving. She denies sleep paralysis and cataplexy. She denies having trouble at school or work due to sleepiness she rarely experiences vivid dreamlike scenes upon awakening or falling asleep. She denies feeling afraid of going to sleep. She occasionally has nightmares. She occasionally remembers her dreams. She occasionally has thoughts racing through her mind. She denies feeling sad or depressed. She occasionally has anxiety. She rarely has mu scular tension. She denies noticing parts of her body jerk. She denies kicking during the night. She denies having crawling and aching feelings in her legs and denies having leg pain night. She rarely grinds his teeth during sleep but never awakens with morning jaw pain. She denies being bothered by pain during the day and denies being awakened by pain during the night. She denies waking up feeling stiff in morning. She denies waking up with sore or achy muscles. She denies waking up with pain in the neck, spine and other joints. She goes to bed between 9-10 p.m. on weekdays and between 10:00 p.m. to midnight on the weekends. It takes her 15 30 minutes to fall asleep. She wakes up 2-3 times throughout the night for unknown reasons but is able to fall back asleep within 10-15 minutes. She wakes up at 6:30 a.m. on both weekdays and weekends. She typically gets 7 8 hours of sleep per night. She will stay in bed for 10 minutes after waking up in the morning. She currently lives with her . She denies consuming any caffeinated beverages within 2 hours of bedtime. She denies engaging in physical exercise before bedtime. She will watch television before falling asleep. She will take naps in afternoon or the evening and they are refreshing. She denies consuming any caffeinated beverages during the day. She denies tobacco use. She denies alcohol and recreational drug use. [facility] Past Medical History Medical History Body mass index [BMI] 36.0-36.9, adult (01/21/18) Obesity (BMI 35.0-39.9 without comorbidity) Paroxysmal supraventricular tachycardia Dyslipidemia Hypertension Surgical History Surgical History History of appendectomy Family History Family History Mother Hypertension Family history of elevated blood lipids Family history of chronic obstructive pulmonary disease Father Family history of cardiovascular disease Social History Social History Smoking status: Never smoker Alcohol intake: never Substance use: never Substance use type: does not use Gender identity (if verbalized by the patient): Female Spiritual care concerns: No Medications Home Medications ?Medication ?Instructions ?Recorded ?Confirmed ?Type bicciajy-oet-hiuzm ac 400 1 tablet PO DAILY 02/21/21 11/27/24 History mcg-calcium carb 500 mg-vit K1 20 mcg tablet (Women's 50 Plus Multivitamin) coenzyme Q10 200 mg capsule 200 mg PO DAILY 09/26/23 11/27/24 History diltiazem HCl 240 mg See Rx Instructions .Route 05/22/24 11/27/24 Rx capsule,extended release 24 hr .COMPLEX #90 caps (Cartia XT) losartan 25 mg tablet See Rx Instructions .Route 09/02/24 11/27/24 Rx .COMPLEX #90 tabs atorvastatin 20 mg tablet See Rx Instructions .Route 11/20/24 11/27/24 Rx .COMPLEX #90 tabs Sleep Procedure The sleep study was completed using EinspectPAT a technically adequate device with seven channels: peripheral arterial tone, actigraphy, body position, snore, respiratory movement, pulse oximetry, sleep staging, and heart rate. Prior to using the device, the patient received verbal and written instructions for its application and was provided with the help desk phone number for additional telephonic instruction with 24-hour availability of qualified personnel to answer questions. The study was scored using CMS guidelines. Sleep Architecture The total recording time is 8 hrs, 40 min. The total sleep time is 7 hrs, 43 min. Sleep latency is 19 minutes. REM latency is 92 minutes. The patient had 13 episodes of waking. Sleep architecture shows 17.5% deep sleep, 61.5% light sleep, and (as % Total Sleep Time) showed NREM (Light 61.5%; Deep 17.5%), and a 21.1% stage REM. The patient spent 69.4% of total sleep time in the supine position. Sleep efficiency was 89.04. Respiratory Analysis The overall AHI (pAHI 4%:) is 8.0. The overall AHI (pAHI 3%:) is 17.8. The central AHI is 0.5. The AHI was 13.1 in NREM and 35.3 in REM sleep. The AHI was 19.0 in Supine and 15.0 in Non-supine sleep. Percent of Mason Flynn respirations is 0.0. Oximetry Data The oxygen desaturation index (IDALIA 4%:) is 7.5. The mean saturation is 94%, and the lowest saturation is 80%. Time spent with saturation < 88% is 2.1 minutes. Snoring Profile Snoring average intensity is 40 dB. The patient snored above 45 decibels for 9.4 minutes, 2.0% of sleep time. Cardiac Profile The average pulse rate is 55 beats per minutes. The lowest pulse rate is 45 bpm. The highest pulse rate reported is 112 bpm. Atrial fibrillation was not dete cted. Premature beats occur <0.1 per minute. Assessment and Plan Assessment and Plan (1) CHARMAINE (obstructive sleep apnea): Code(s): G47.33 - Obstructive sleep apnea (adult) (pediatric) Status: Acute Assessment and Plan: The patient had an overall AHI of 8.0 with desaturation down to 80%. This is consistent with mild sleep apnea. Due to the patient's cardiac arrhythmias, she qualifies for treatment. I recommend that the patient be prescribed Resmed AutoPAP 5-15 cm H2O, CPAP mask/filters/tubing and heated humidity. This should be used with all episodes of sleep.? Compliance should be reviewed within 31-90 days of starting therapy for usage greater than 4 hours per night greater than 70% of the nights. The patient should be asked about symptoms such as?excessive daytime sleepiness, quality of sleep, decreased nocturia, increased?mental functioning such as memory, mood, and concentration. Data The data obtained during this sleep study is adequate for interpretation. Certification This sleep study has been reviewed by a board certified sleep medicine physician.
== END 2025-01-08 15:46 | disposition home or self-care (01) ==
LOC: ANHCSM 08:03
PROVIDERS: PCP Internal Medicine; Visit Provider Internal Medicine Cardiovascular Disease
DX: G47.10 Hypersomnia, unspecified (principal); G47.33 Obstructive sleep apnea (adult) (pediatric)
CPT/HCPCS: 95800

== ENCOUNTER 2025-02-27 07:39 | Emergency (ER) | payer BC, SELFPAY ==
--- NOTE | ~2025-02-27 | XR_ITS ---
EXAMINATION: XR chest 1V portable 02/27/2025 08:13 INDICATION: Chest palpitations PROCEDURE: AP portable chest COMPARISON: Comparison to multiple prior studies sequentially, with oldest reviewed study dated 06/2013. FINDINGS: The lungs are clear. The cardiomediastinal silhouette is within normal limits. There are no pleural effusions. There is no pneumothorax suspected. IMPRESSION: 1: NO ACUTE CARDIOPULMONARY DISEASE. Reviewed, dictated and finalized at location A.
[2025-02-27 07:40] VITALS: BP 181/91; PULSE 109; PULSE 113; RESP 20; TEMP 37.1; O2SAT 97
--- NOTE | 2025-02-27 07:40 | ECG_ITS ---
Test Date: 2025-02-27 07:53:02 Measurements Intervals [place] Rate: 82 P: 33 NE: 152 QRS: 14 QRSD: 90 T: 22 QT: 346 QTc: 404 Interpretive Statements SINUS RHYTHM WITH OCCASIONAL VENTRICULAR PREMATURE COMPLEXES NONSPECIFIC ST & T-WAVE ABNORMALITY No previous ECG available for comparison Electronically Signed On 02-27-2025 12:02:28 CDT by Sendy Stover M.D.
--- NOTE | 2025-02-27 07:41 | ED.ARRPALP ---
HPI - Arrhythmia/Palpitations General Chief Complaint: Arrhythmia/Palpitations Stated Complaint: irregular heart beat Time Seen by Provider: 02/27/25 07:40 Source: patient and family Mode of arrival: ambulatory Limitations: no limitations History of Present Illness HPI narrative: Patient is a 64-year-old female with palpitations and arrhythmia for the past 24 hours. She had an ablation of her heart for an SVT last year. No chest pain or shortness of breath. The occasional PVC on the monitor when she came to the ER is noted. She said she got a heart rate of 150 on her home monitor today. Her blood pressure is normally without elevation at home and she gets white coat hypertension. MD complaint: rapid heart beat, skipped beats and palpitations Onset (ago): day(s) ( One) Duration: intermittent Severity: mild Context: occurred during rest and occurred during exertion Arrhythmia history: SVT and history of ablation Associated symptoms: nausea Treatments prior to arrival: other ( none) Related Data Home Medications ?Medication ?Instructions ?Recorded ?Confirmed ?Last Taken ?Type vqgwgwrf-vyi-hdtke ac 400 1 tablet PO DAILY 02/21/21 11/27/24 Unknown History mcg-calcium carb 500 mg-vit K1 20 mcg tablet (Women's 50 Plus Multivitamin) coenzyme Q10 200 mg capsule 200 mg PO DAILY 09/26/23 11/27/24 Unknown History Allergies Allergy/AdvReac Type Severity Reaction Status Date / Time No Known Drug Allergies Allergy Unknown none Verified 11/27/24 14:08 Review of Systems Review of Systems: All systems reviewed & are unremarkable except as noted in HPI and below Constitutional: Constitutional: Reports no additional constitutional complaints Eyes: Eyes: Reports no additional eye complaints ENT: Reports system reviewed and no additional complaints, except as documented Cardiovascular: Cardiovascular: Reports no additional cardiovascular complaints Respiratory: Respiratory: Reports no additional respiratory complaints Gastrointestinal: Gastrointestinal: Reports no additional gastrointestinal complaints Genitourinary: Genitourinary: Reports no additional female genitourinary complaints Musculoskeletal: Musculoskeletal: Reports no additional musculoskeletal complaints Integumentary/Breasts: Skin/Breast: Reports system reviewed and no additional complaints, except as docu Neurologic: Reports system reviewed and no additional complaints, except as documented Psychiatric: Psychiatric: Reports no additional psychiatric complaints Endocrine: Endocrine: Reports no additional endocrine complaints Hematologic/Lymphatic: Hematologic/Lymphatic: Reports no additional hematologic/lymphatic complaints Allergic/Immunologic: Allergic/Immunologic: Reports no additional allergic/immunologic complaints PMFSH Past Medical History Medical History Body mass index [BMI] 36.0-36.9, adult (01/21/18) Obesity (BMI 35.0-39.9 without comorbidity) Paroxysmal supraventricular tachycardia Dyslipidemia Hypertension Surgical History Surgical History History of appendectomy Family History Family History Mother Hypertension Family history of elevated blood lipids Family history of chronic obstructive pulmonary disease Father Family history of cardiovascular disease Social History Social History Smoking status: Never smoker Alcohol intake: never Substance use: never Substance use type: does not use Gender identity (if verbalized by the patient): Female Spiritual care concerns: No Exam Const: General: healthy appearing Nutritional Appearance: well nourished Orientation/consciousness: patient oriented x3 HENMT: Head: normal to inspection Ears: external ears normal Face/Nose/Sinus: Normal external nose present Eyes: Conjunctivae: conjunctivae normal Pupils: Equal, round and reactive pupils present EOM: EOMs intact bilaterally Neck: Neck: normal visual inspection Chest: Chest palpation & inspection: normal inspection of the chest Resp: Effort & Inspection: normal respiratory effort and not labored Auscultation: clear to auscultation bilaterally and no crackles Cardio: Rate: regular rate Rhythm: regular rhythm Heart sounds: no murmurs Other: PVCs appreciated on telemetry GI: Inspection: non-distended GI Palp: Yes Soft to palpation and No Tenderness to palpation present (GI) Auscultation: normal bowel sounds : General: Yes bladder normal to palpation Back/Spine/Pelvis: Back: no CVA tenderness Skin: General skin exam: normal color Rashes: no rashes Wounds: no wounds Neuro: General: patient oriented x3 Cranial nerves: Yes Nystagmus not present Speech: normal speech Extrem: General: normal to inspection Psych: Mental Status: mental status grossly normal Affect: normal affect Attitude: cooperative Course Vital Signs Vital signs: Vital Signs Temperature 37.1 C 02/27/25 07:40 Pulse Rate 109 H 02/27/25 07:40 Respiratory Rate 20 02/27/25 07:40 Blood Pressure 181/91 H 02/27/25 07:40 Pulse Oximetry 97 02/27/25 07:40 Oxygen Delivery Room Air 02/27/25 07:40 Temperature 36.6 C 02/27/25 10:10 Pulse Rate 76 02/27/25 10:10 Respiratory Rate 20 02/27/25 10:10 Blood Pressure 128/62 02/27/25 10:10 Pulse Oximetry 95 02/27/25 10:10 Oxygen Delivery Room Air 02/27/25 10:10 MDM - Arrhythmia/Palpitations MDM Narrative Medical decision making narrative: patient is a 64-year-old female with palpitations and arrhythmia in the past 24 hours. Previously SVT ablated. We will do a cardiac workup at this time. potassium and magnesium were low. We will replace at this time. Her her creatinine is elevated without comparison. possible hypothyroidism but we will check T3 and T4. Levels of T3 and T4 were normal so we are not concerned about hyperthyroid at this time and likely subclinical. Lab Data Attestation: I reviewed the patient's lab results. 02/27/25 08:01 02/27/25 08:01 Labs: Lab Results 02/27/25 Range/Units 08:01 WBC 9.3 (4.8-10.8) K/mm3 RBC 4.75 (4.20-5.40) M/mm3 Hgb 14.4 (12.0-15.0) g/dL Hct 44.2 (35.0-49.0) % MCV 93.1 (78.0-102.0) fL MCH 30.3 (27.0-31.0) pg MCHC 32.6 (32-36) g/dL RDW 11.9 (11.6-14.4) % Plt Count 462 H (150-420) K/mm3 MPV 8.6 L (9.2-11.8) fl Immature Gran % (Auto) 0.2 H (0.0-0.0) % Neut % (Auto) 50.4 (50.0-70.0) % Lymph % (Auto) 38.9 (18.0-42.0) % [place] % (Auto) 8.2 (2.0-11.0) % Eos % (Auto) 1.5 (1.0-6.0) % Baso % (Auto) 0.8 (0.0-1.0) % Lymph # (Auto) 3.60 (1.10-4.50) K/mm3 [place] # (Auto) 0.76 (0.10-0.90) K/mm3 Eos # (Auto) 0.14 (0.02-0.50) K/mm3 Baso # (Auto) 0.07 (0.00-0.10) K/mm3 Abs Immat Gran (auto) 0.02 H (0.00-0.00) K/mm3 Absolute Neuts (auto) 4.67 (1.70-7.20) K/mm3 Absolute Nucleated RBC 0.00 (0.00-0.00) K/mm3 Nucleated RBC % 0.0 (0-0.0) % Sodium 137 (136-145) mmol/L Potassium 3.3 L (3.5-5.1) mmol/L Chloride 101 (98-108) mmol/L Carbon Dioxide 28 (21-32) mmol/L Anion Gap 8 (4-12) mmol/L BUN 15 (7-18) mg/dL Creatinine 1.02 (0.55-1.02) mg/dL Estim Creat Clear Calc 47 ml/min Estimated GFR 55 L (59 - ) Glucose 116 H (70-99) mg/dL Calculated Osmolality 285 (285-295) mOsm/kg Calcium 9.5 (8.5-10.1) mg/dL Magnesium 1.7 L (1.8-2.4) mg/dL Total Bilirubin 0.5 (0.00-1.00) mg/dL AST 13 L (15-37) U/L ALT 22 (14-59) U/L Alkaline Phosphatase 113 (46-116) U/L Troponin I 7.7 (0.00-60.4) ng/L NT-Pro-B Natriuret Pep 56 (0-125) pg/mL Total Protein 7.7 (6.4-8.2) g/dL Albumin 3.5 (3.4-5.0) g/dL TSH 6.56 H (0.36-3.74) uIU/mL Free T4 0.84 (0.76-1.46) ng/dL Free T3 pg/mL 2.81 (2.18-3.98) pg/mL Imaging Data Attestation: I personally reviewed and interpreted this imaging study as follows: Radiologist's impression: chest x-ray is negative for acute process ECG Data EKG #1: Attestation: I personally reviewed and interpreted this ECG as follows: ECG completion date: 02/27/25 ECG completion time: 07:55 EKG Interpretation: normal rate, sinus rhythm, PVCs ( Occasional), non-specific ST changes, normal QRS, normal QT and NL axis Discharge Plan Discharge Clinical Impression: Symptomatic PVCs, Hypomagnesemia, Acute hypokalemia Patient Disposition: Home Condition: Stable Instructions: Premature Ventricular Contractions (ED) Additional Instructions: please follow-up with the primary doctor in the next week. If this palpitation continues further then a mammography technologist must be seen such as your metallographic technician to assist with recurrent PVCs. Patient Language: Slovenian Prescriptions: No Action Women's 50 Plus Multivitamin 400 mcg-500 mg calcium-20 mcg tablet 1 tablet PO DAILY coenzyme Q10 200 mg capsule 200 mg PO DAILY losartan 25 mg tablet See Rx Instructions .ROUTE .COMPLEX Qty: 90 2RF Dose Instruction: TAKE ONE TABLET BY MOUTH DAILY Rx Instructions: TAKE ONE TABLET BY MOUTH DAILY atorvastatin 20 mg tablet See Rx Instructions .ROUTE .COMPLEX Qty: 90 2RF Dose Instruction: TAKE ONE TABLET BY MOUTH DAILY Rx Instructions: TAKE ONE TABLET BY MOUTH DAILY diltiazem HCl 240 mg capsule,extended release 24hr See Rx Instructions .ROUTE .COMPLEX Qty: 90 2RF Dose Instruction: TAKE ONE CAPSULE BY MOUTH DAILY Rx Instructions: TAKE ONE CAPSULE BY MOUTH DAILY Follow-up/Referrals: Navin Lucas MD [Primary Care Provider] - Time of Disposition: 10:14
--- OUTSIDE RECORDS SUMMARY | 2025-02-27 07:44 | XMS_ITS | Clinical Summary ---
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 Gender Identity Not on file Sexual Orientation [...] Screening with HPV 1991 Mammogram Screening 2001 Pneumococcal Vaccine: 50+ Ye ars (1 of 1 - PCV) 2011 Zoster Vaccines (1 of 2) 2011 COVID-19 Vaccine ( - 2023-2 5 season) 2024 RSV Immunization or 60+ Years (1 - 1-dose 75+ series) 2036 Meningococcal B Vaccine Aged Out No l onger eligible based on patient's age to complete this topic Meningococcal Vaccine Aged Out No huagn alisha eligible based on patient's age to complete this topic RSV Immunizations Under 20 Months Aged Out No longer eligible based on patient's age to complete this topic [place] [address] [address] Advance Directives * Full Code (Latest Code Status on File) Date Activated Date Inactivated Comments 01/11/2024 4:37 PM 01/11/2024 8:50 PM Care Teams Community Health Advocate Relationship Specialty Start Date End Date Navin Lucas MD [address] [place] [address] PCP - General INTERNAL MEDICINE 11/19/23 Paco Anderson DO [address] [place], [place] [id number] INTERNAL MEDICINE 11/19/23
--- OUTSIDE RECORDS SUMMARY | 2025-02-27 07:44 | XMS_ITS | Data Portability ---
Author Organization [facility] Address [address] [place] [address] Care Team Providers Care Process Engineer Name Role Phone EBONIE JAIMES Primary Care Provider [phone] Assessment Encounter Date Assessment Date Assessment LastModified by Organization Details LastModified Time 03/18/2024 03/18/2024 Annual gynecological exam performed. Patient will come back in a year unless there are new symptoms. [email or web address] Not available 03/18/2024 11:02:59 Plan of Treatment Reminders Order Date Submit Date Provider Last Modified By Organization Details Last Modified Time Details Appointments [facility] 2024 10:15A M HESHAM LI NP Not available Not available Not available Lab None recorded. Referral None recorded. Procedures None recorded. Surgeries None recorded. Imaging MAMMO, screening , bilateral 2023 024 [email or web address] [facility], [address], [facility] [address], [place], [address], 04/15/2024 11:04:44 Medication Orders triamcino lone acetonide 0.1 % topical ointment 2023 024 DONAVAN [facility], [facility] [place], [address], 03/18/2024 11:20:01 Patient TargetsNo targets recorded. Patient InstructionsNo instructions recorded. Reason for Referral None Reported. Results Created Date Observation Date Name Description Value Unit Range Abnormal Flag Note LastModifiedBy Organization Detail LastModifiedTime 03/18/2003/18/2024 IMAGE GUIDE D PAP AND HPV REGAR DLESS image guided Pap, HPV regardless of Pap result SEE RESULT S BELOW CASE REPOR T: Cytol ogy Gynec ologi clemente Repor t Case: [id number] Autho dania cordero Provi lesley: Tony gale , Kari Donato cted: 03/18 1704 [employer] Order ing Locat ion: [place] [facility] Recei joellen: 03/19 1011 First Scree n: Sharon [...] OSIS: Negat uriel for Intra epith elial Regino mckay or Wendy diamond ([facility]) . Atrop hic cell ab irving. Elect brooklyn bell michelle d by Sharon Laurent ed, CT on 2023 [...] ion is recom jj d, as clini ilsa pina nted. Not Available [facility] (Lab) [address], [place], [address], 03/20/2024 23:27:01 Result Notes None recorded. Problems Name Problem SNOMED Code Status Onset Date Resolution Date Notes Provider Name and Address Organization Details Recorded Time Hypertens uriel disorder 53913175 Active 2015 HTN;Record ed Elsewhere: No Locatio n: [facility] Katie rce: EHR Chroni c: N Practice ID: 0001 Billa ble Time: 10:30:00 AM Not Available [facility] 0 14:44:05 History of cardiovas cular surgery 235494100 Active 2023 heart ablation / elevated heart rate Leonela [facility], [facility] 11:07:29 Problem Notes None recorded. Procedures Surgical History Date Name Laterality Status Provider Name and Address Organization Details Recorded Time 03/18/20 24 Date of Last [facility] 03/18/2024 17:50:44 01/11/20 24 catheter ablation of tissue of heart completed [facility] 03/18/2024 11:11:38 04/21/20 23 mohs surgery completed [facility] 03/18/2024 11:11:20 10/22/19 16 Date of Last Colonoscopy completed [facility] 05/13/2024 14:21:05 10/22/19 16 Colonoscopy completed [facility] 05/13/2024 14:26:27 10/22/18 74 Appendectomy completed [facility] 03/18/2024 11:10:41 10/22/18 74 Appendectomy completed [facility] 05/13/2024 14:26:55 Imaging Results None recorded. Procedure Notes None recorded. Medical Equipment None Reported. Allergies No known drug allergies Medications Name Sig Start Date Stop Date Status Note LastModified by Organization Details LastModified Time atorvasta tin 40 mg tablet take 1 tablet by oral route every day 03/18 completed Prescrib ed Elsewher e: Yes [facility] By: jose luis Jordan ncounter DateTime [...] Elsewher e: Yes Loca tion: Danny jordan [facility] odify By: carmen de diosunter DateTime : 08/12/20 13 10:30:00 AM Not Available Not Available Not Available diltiazem ER 300 mg capsule,2 4 hr,extend ed release take 1 capsule by oral route every day 03/18 completed Prescrib ed Elsewher e: Yes Loca tion: Danny jordan [facility] odify By: jose luis Jordan ncounter DateTime : 08/01/20 17 02:30:00 PM Not Available Not Available Not Available amoxicill in 500 mg tablet take 1 tablet by oral route 3 times every day 08/17 completed Prescrib ed Elsewher e: No Locat ion: Danny jordan [facility] odify By: adelina Jordan ncounter DateTime : 07/27/20 16 02:05:49 PM Not Available Not Available Not Available verapamil 120 mg tablet 08/12 completed Prescrib ed Elsewher e: Yes Loca tion: Danny jordan [facility] odify By: carmen Jordan ncounter DateTime : 06/09/20 13 10:00:00 AM Not Available Not Available Not Available Cipro 500 mg tablet take 1 tablet by oral route every 12 hours 08/17 completed Prescrib ed Elsewher e: No Locat ion: Danny jordan [facility] odify By: adelina de diosunter DateTime : 07/15/20 15 11:00:00 AM Not [...] Elsewher e: Yes Loca tion: Danny jordan [facility] odify By: stephenie Jordan ncounter DateTime : 08/01/20 17 02:30:00 PM Not Available Not Available Not Available losartan 25 mg tablet active Not Available Not Available Not Available verapamil ER (PM) 100 mg capsule 24hr pellet CT,ext.re lease take 1 capsule by oral route every day at bedtime 08/01 completed Prescrib ed Elsewher e: Yes Loca tion: [facility] odify By: lspatricia Jordan ncounter DateTime : 06/02/20 14 11:00:00 AM Not Available Not Available Not Available magnesium 200 mg tablet active Not Available Not Available Not Available CoQ10 active Not Available Not Availa ble Not Available Tylenol 325 mg capsule 03/18 completed Prescrib ed Elsewher e: Yes Loca tion: [facility] odify By: tmguzman Jordan ncounter DateTime : 10/29/19 10:15:00 AM Not Available Not Available Not Available Vitals Date Recorded Body height Body mass index (BMI) Body weight Provider Name and Address Organization Details Last Updated DateTime 03/18/2024 146.05 cm 41.5 kg/m2 82436.51 g Leonela Owusu [facility] 03/18/2024 11:03:50 Date Recorded Systolic blood pressure Diastolic blood pressure Provider Name and Address Organization Details Last Updated DateTime 03/18/2024 132 mm[Hg] 76 mm[Hg] Zuleima Gipson, [facility]- [address], [place], [address], [facility] 03/18/2024 11:22:08 Social History Question Answer Notes LastModified by Organizat ion Details LastModified Time Tobacco Smoking Status Never Smoker Leonela Owusu null, [facility] 03/18/2024 11:10:29 What Is Your Level Of Alcohol Consumption? None [email or web address] Information not available 03/18/2024 Are You Blind Or Do You Have Difficulty Seeing? No [email or web address] Information n ot available 03/18/2024 What Is Your Level Of Caffeine Consumption? Occasional [email or web address] Information not available 03/18/2024 How Much Tobacco Do You Chew? None [email or web address] Information not available 03/18/2024 In The 14 Days Before Symptom Onset, Have You Had Close Contact With A Laboratory-confirm ed COVID-19 While That Case Was Ill? No [email or web address] Information n ot available 03/18/2024 In The 14 Days Before Symptom Onset, Have You Had Close Contact With A Person Who Is Under Investigation For COVID-19 While That Person Was Ill? No [email or web address] Information not available 03/18/2024 Have You Been To An Area Known To Be High Risk For COVID-19? No Information not available 03/18/2024 Are You Deaf Or Do You Have Serious Difficulty Hearing? No [email or web address] Information not available 03/18/2024 What Type Of Diet Are You Following? CARBOHYDRATE [email or web address] Information n ot available 03/18/2024 What Is The Highest Grade Or Level Of School You Have Completed Or The Highest Degree You Have Received? SI75817-3 [email or web address] Information not available 03/18/2024 Do You Use Protection During Sex? No [email or web address] Information not available 03/18/2024 Do You Use Your Seat Belt Or Car Seat Routinely? Yes [email or web address] Information not available 03/18/2024 Do You Have Smoke And Carbon Monoxide Detectors In Your Home? Yes [email or web address] Information not available 03/18/2024 How Much Tobacco Do You Smoke? No [email or web address] Information not available 03/18/2024 Do You Feel Stressed (tense, Restless, Nervous, Or Anxious, Or Unable To Sleep At Night)? [id number] [email or web address] Information not available 03/18/2024 Do You Use Any Illicit Or Recreational Drugs? No Information not available 03/18/2024 Do You Use Sunscreen Routinely? Yes Information not available 03/18/2024 Has Tobacco Cessation Counseling Been Provided? No [email or web address] Information not available 03/18/2024 Do You Or Have You Ever Used Any Other Forms Of Tobacco Or Nicotine? No [email or web address] Information not available 03/18/2024 Sex: Unknown Functional Status Question Answer Note LastModified by Organizat ion Details LastModified Time Do you have difficulty walking or climbing stairs? No [email or web address] Information not available 03/18/2024 Are you able to walk? YESWOREST [email or web address] Information not available 03/18/2024 Are you able to care for yourself? Yes [email or web address] Information not available 03/18/2024 Do you have difficulty dressing or bathing? No [email or web address] Information not available 03/18/2024 What is your exercise level? Moderate [email or web address] Information not available 03/18/2024 Mental Status None recorded. Family History Relationship Description Onset Age of this Age Resolved Age Notes LastModified by Organization Details LastModified Time Father Heart disease [email or web address] Not available 03/18 11:04:33 Paternal Grandmother Heart disease [email or web address] Not available 03/18 11:04:33 Mother Malignant neoplasm of lung [email or web address] Not available 03/18 11:04:34 Mother Osteoporosis [email or web address] Not narinder ilable 03/18/2024 11:04:34 Maternal Aunt Malignant tumor of colon Not available 03/18 11:04:34 Maternal Grandmother Osteoporosis [email or web address] Not availabl e 03/18/2024 11:04:34 Sister Malignant neoplasm of ovary [email or web address] Not available 03/18 11:04:34 Maternal Grandfather Malignant neoplasm of lung [email or web address] Not available 03/18 11:04:34 Paternal Grandfather Heart disease [email or web address] Not available 03/18 11:04:34 Notes:Father: Hypertension M aternal aunt: Cancer, colon Maternal grandfather: Cancer, lung Mother: Hypertension Sister: Hypertension, Ovarian cancer Medical History Condition Response Allergies (Food, seasonal, environmental ) N Other Y Drug/Latex Allergies/Reactions N Blood Transfusion N Breast Cancer N Dermatologic Disorders N Lung Disease N Defects or Inherited Disease N Breast Problem Y Gestational Diabetes N Hematologic disorders N Anesthesia Complications N History of STI N Deep Vein Thrombosis N Polycystic ovary syndrome N Anxiety Disorder Y Autoimmune disease N Arthritis N Infertility N Acid Reflux (GERD) N History of abnormal pap N Cancer Y Varicosities N Stroke N Neurologic/Epilepsy N Endometriosis N High Cholesterol Y Fibromyalgia N Headaches N Kidney Disease N Heart Problems Y Thyroid Problems N Kidney or Bladder Problems N GI Problems N Eating Disorder N Anemia N Art (IVF or FET) N Psychiatric Illness N Ovarian Cancer N Diabetes N Pulmonary (TB, Asthma) N Hepatitis/Liver Disease N No Past Medical History N Eczema N Urinary Tract Infection N Abuse/Domestic Violence N Asthma N Trauma/Violence N Depression/ depression N Heart Disease Y Pre-Eclampsia N Hypertension Y Osteoporosis Y Thrombophilias N Gynecological History Statement/Question Response Abnormal Pap N [...] SNOMED-CT Code Diagnosis ICD10 Code Diagnosis Note [id number] Zuleima Gipson [facility] [address] [address] 03/18/2024 10:49:35 03/18/2024 11:26:22 Gynecologic examination 44307453 Z01.419 Take Calcium with Vitamin D 12-1500mg daily. Do monthly self breast exams. It is advised to get annual flu shot in the fall and she could obtain at [facility] or [facility] care clinic. If you haven't received the Tdap [...] [facility] PCP Screening mammography 24 878793 Z12.31 Contact de rmatitis caused by urushiol from [facility] [id number] L25.5 See PCP if sx's worsen or persist Health Concerns Section Related Observation LastModified by Organization Detai ls LastModified Time None Recorded Concern Status LastModified by Organization Details LastModified Time None Recorded Advance Directives Directive None Recorded Payers Encounter Date Sequence Insurance Name Policy Number Policy Shipman Covered Member ID Shipman Member ID Guarantor Name 03/18/2024 1 [place]THGABRIELA [employer] [place] [id number] Christina Damon [id number] Christina Damon Notes Date Note Type Note Provider Name and Address Organization Details Recorded Time 03/18/2024 text/html Annual Industrial Relations Officer Post-MenopausalRe ported bypatient.Menopau davis Symptoms:no menopausal symptoms; [...] of recent colonoscopy (due 2023) Zuleima Gipson, [facility]- [address], [place], [address], [facility] 03/18/2024 11:23:49 OBGyn Episode Ob Episode Information Episode Created Date Number of Fetuses Patient Bloodtype Patient rh Status Prepregnancy Weight lbs Domestic Partner Domestic Partner Phone Father Name Personal Clothing Laundry Aide Status 03/18/20 24 1 CLOSED Fetus Data First Name Last Name Admitted to NICU Weight (g) Sex Living Outcome Pediatric Complications Fetus ID Race Codes Race Delivery Type 2976.47 0704 F Full Term [id number] Vaginal Delivery Torsten Calculation Initial Torsten Date [...]
[2025-02-27 08:06] LABS: Basophils Absolute Auto 0.07 K/mm3 (0.00-0.10); Basophils Percent Auto 0.8 % (0.0-1.0); Eosinophils Absolute Auto 0.14 K/mm3 (0.02-0.50); Eosinophils Percent Auto 1.5 % (1.0-6.0); Hematocrit 44.2 % (35.0-49.0); Hemoglobin 14.4 g/dL (12.0-15.0); Immature Granulocyte Absolute 0.02 K/mm3 (0.00-0.00); Immature Granulocyte Percent A 0.2 % (0.0-0.0); Lymphocytes Percent Auto 38.9 % (18.0-42.0); Mean Corpuscular HGB Conc 32.6 g/dL (32-36); Mean Corpuscular Hemoglobin 30.3 pg (27.0-31.0); Mean Corpuscular Volume 93.1 fL (78.0-102.0); Mean Platelet Volume 8.6 fl (9.2-11.8); Monocytes Absolute Auto 0.76 K/mm3 (0.10-0.90); Monocytes Percent Auto 8.2 % (2.0-11.0); Neutrophils Absolute Auto 4.67 K/mm3 (1.70-7.20); Neutrophils Percent Auto 50.4 % (50.0-70.0); Platelet Count Result 462 K/mm3 (150-420); Red Blood Count 4.75 M/mm3 (4.20-5.40); Red Cell Distribution Width 11.9 % (11.6-14.4); White Blood Count 9.3 K/mm3 (4.8-10.8)
--- OUTSIDE RECORDS SUMMARY | 2025-02-27 08:17 | XMS_ITS | Clinical Summary ---
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
[2025-02-27 08:31] LABS: Alanine Aminotransferase 22 U/L (14-59); Albumin Level 3.5 g/dL (3.4-5.0); Alkaline Phosphatase 113 U/L (46-116); Anion Gap 8 mmol/L (4-12); Aspartate Amino Transferase 13 U/L (15-37); Bilirubin,Total 0.5 mg/dL (0.00-1.00); Blood Urea Nitrogen 15 mg/dL (7-18); Calcium 9.5 mg/dL (8.5-10.1); Carbon Dioxide 28 mmol/L (21-32); Chloride 101 mmol/L (98-108); Estimated CRCL calculation 47 ml/min; Estimated Glomerular Filt Rate 55; Glucose 116 mg/dL (70-99); Magnesium 1.7 mg/dL (1.8-2.4); NT Pro B Type Natriuretic Pept 56 pg/mL (0-125); Osmolality Calculated 285 mOsm/kg (285-295); Potassium 3.3 mmol/L (3.5-5.1); Sodium 137 mmol/L (136-145); Total Protein 7.7 g/dL (6.4-8.2)
[2025-02-27 08:36] LABS: Thyroid Stimulating Hormone 6.56 uIU/mL (0.36-3.74); Troponin I 7.7 ng/L (0.00-60.4)
[2025-02-27] MEDS: POTASSIUM CHLORIDE 20 MEQ ER TABLET 40 MEQ PO (09:19)
[2025-02-27] MEDS: MAGNESIUM SULF 2 GM/WATER 50ML 2 GM/50 ML BAG IVPB (09:23)
[2025-02-27 10:10] VITALS: BP 128/62; PULSE 76; RESP 20; TEMP 36.6; O2SAT 95
[2025-02-27 10:29] LABS: Free T4 Free Thyroxine 0.84 ng/dL (0.76-1.46)
[2025-02-27 10:35] LABS: Free T3 2.81 pg/mL (2.18-3.98)
== END 2025-02-27 10:17 | disposition home or self-care (01) ==
PROVIDERS: Emergency Provider Emergency Medicine; PCP Internal Medicine
DX: I49.3 Ventricular premature depolarization (principal); E83.42 Hypomagnesemia; E87.6 Hypokalemia; I10 Essential (primary) hypertension; I48.0 Paroxysmal atrial fibrillation
CPT/HCPCS: 36415; 71045; 80053; 83735; 83880; 84439; 84443; 84481; 84484; 85025; 93005; 96365; 99284; A9270; J3475

== ENCOUNTER 2025-04-14 15:12 | Outpatient (CLI) | payer BC, SELFPAY ==
--- NOTE | ~2025-04-14 | DEXA_ITS ---
Bone Density Report Name: BRYAN VENEGAS Age: 64 Sex: Female Ethnicity: White Date of : 1960 Indication: postmenopausal; screening for osteoporosis; Referring Provider: JEN, HESHAM Holder Study: Bone densitometry was performed. Exam Date: April 14, 2025 Accession number: [id number] Bone Density: Region BMD T-score Z-score Classification AP Spine(L1-L4) 0.909 -1.3 0.4 Osteopenia Femoral Neck (Left) 0.695 -1.4 0.1 Osteopenia Total Hip (Left) 0.995 0.4 1.6 Normal Femoral Neck (Right) 0.761 -0.8 0.7 Normal Total Hip (Right) 1.037 0.8 1.9 Normal Total Hip Mean 1.016 0.6 1.8 Normal World Health Organization criteria for BMD impression classify patients as: Normal (T-score at or above -1.0), Osteopenia (T-score between -1.0 and -2.5), or Osteoporosis (T-score at or below -2.5). 10-year Fracture Risk(1): Major Osteoporotic Fracture 7.9% Hip Fracture 0.7% Reported Risk Factors: [place] (), Neck BMD=0.695, BMI=34.1 (1) FRAX(R) Version 3.08. Fracture probability calculated for an untreated patient. Fracture probability may be lower if the patient has received treatment. Previous Exams: -- Region Exam Age BMD T-score BMD Change BMD Change Date g/cm2 vs Baseline vs Previous -- AP Spine (L1-L4) 04/14/2025 64 0.909 -1.3 -3.6%# -3.6%# 06/16/2013 53 0.943 -0.9 Total Hip(Left) 04/14/2025 64 0.995 0.4 4.1%# 4.1%# 06/16/2013 53 0.956 0.1 Total Hip(Right) 04/14/2025 64 1.037 0.8 7.8%# 7.8%# 06/16/2013 53 0.962 0.2 -- *Denotes significance at 95% confidence level, LSC for AP Spine = 0.022 g/cm2, LSC for Total Hip = 0.027 g/cm2 # Denotes dissimilar scan types or analysis methods Clinical Information Provided by Patient: Patient maximum height was 60 Menopause Age: 48 Onset of menses at age 13 Number of children 1 Impression: The patient has low bone mass, based on the Left Femoral Neck T-score. The patient has an estimated ten-year risk of hip fracture of 0.7% and an estimated ten-year risk of major fracture of 7.9%, based on the WHO FRAX algorithm. Unable to evaluate interval change due to the use of different scan modes. Discussion: BONE DENSITY IS LOW AT ONE OR MORE SKELETAL SITES. This patient's lowest T-score is low at one or more skeletal sites. It meets the World Health Organization's (WHO) criteria for ?low bone mass? (T-score between -1.0 and -2.5). The patient's 10-year risk of fracture as calculated by FRAX is less than the threshold where pharmacological therapy is recommended by the National Osteoporosis Foundation (NOF). However, all treatment decisions require clinical judgment and consideration of individual patient factors, including patient preferences, comorbidities, previous drug use, risk factors not captured in the FRAX model (e.g., frailty, falls, vitamin D deficiency, increased bone turnover, interval significant decline in bone density) and possible under or overestimation of fracture risk by FRAX. The patient should follow a healthful lifestyle (good nutrition with adequate calcium and vitamin D, and appropriate weight-bearing exercise). Follow-Up: Consider repeating this study in 2 to 3 years to reassess this patient's status, or sooner if there is some new clinical indication. Reported by: DEMETRIO on 04/14/2025 3:34:00 PM. Reviewed, dictated and finalized at location A.
== END 2025-04-14 15:13 | disposition home or self-care (01) ==
PROVIDERS: PCP Internal Medicine; Visit Provider Student in an Organized Health Care Education/Training Program
DX: Z13.820 Encounter for screening for osteoporosis (principal); M85.89 Other specified disorders of bone density and structure, multiple sites; Z12.31 Encounter for screening mammogram for malignant neoplasm of breast
CPT/HCPCS: 77080

== ENCOUNTER 2025-10-06 11:15 | Outpatient (CLI) | payer BC, SELFPAY ==
--- NOTE | ~2025-10-06 | MM_ITS ---
EXAMINATION: MM screening tonio BI w queta HISTORY: Screening TECHNIQUE: Craniocaudal and mediolateral oblique 3-D tomosynthesis images were obtained and synthetic 2-D images were generated. CAD analysis was submitted and interpreted. COMPARISON: Comparison to multiple prior studies sequentially, with oldest reviewed study dated , 08/10/2015. BREAST PARENCHYMAL COMPOSITION: Not Dense: The breasts are almost entirely fatty. FINDINGS: There is no evidence of suspicious mass, calcification, or architectural distortion to suggest malignancy in either breast. IMPRESSION: 1. No mammographic evidence of malignancy. 2. Recommend routine screening mammography in one year. BI-RADS Category 1: Negative Reviewed, dictated and finalized at location A. 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
== END 2025-10-06 11:16 | disposition home or self-care (01) ==
LOC: MICIMG 11:15
PROVIDERS: PCP Internal Medicine; Visit Provider Student in an Organized Health Care Education/Training Program
DX: Z12.31 Encounter for screening mammogram for malignant neoplasm of breast (principal); Z13.820 Encounter for screening for osteoporosis
CPT/HCPCS: 77063; 77067